=== PATIENT | male | born 1985 | race Caucasian/White ===

== ENCOUNTER 2016-08-13 14:21 | Emergency (ER) | payer BC ==
[~2016-08-13] VITALS: Ht 177.8 cm; Wt 103.1 kg
[2016-08-13 14:26] VITALS: Ht 177.8 cm; Wt 103.1 kg
[2016-08-13] MEDS ORDERED: ONDANSETRON INJ 2 MG/ML 2 ML VIAL IV STA (14:43)
[2016-08-13] MEDS ORDERED: KETOROLAC TROMETHAMINE 30 MG/ML VIAL IV STA (14:43)
[2016-08-13] MEDS ORDERED: MoRPHine SULFATE 10 MG/ML CARP/VIAL IV STA (14:43)
[2016-08-13] MEDS ORDERED: SODIUM CHLORIDE 0.9% 1000ML 1,000 ML IV STA (14:43)
[2016-08-13] MEDS ORDERED: MoRPHine SULFATE 4 MG/ML 1 ML CARP\\VIAL ONE (14:59)
[2016-08-13] MEDS ORDERED: MoRPHine SULFATE 2 MG/ML CARP ONE (14:59)
[2016-08-13] MEDS ORDERED: PRED10TA PO (15:06)
[2016-08-13 15:24] LABS: BASO % 0.1 %; BASO ABS # 0.02 K/uL (0-0.2); COMPLETE YES; HEMATOCRIT 46.4 % (42-52); IG% 0.4 %; LYMPH % 10.1 %; LYMPH ABS # 1.98 K/uL (1.2-3.4); MEAN CELL VOLUME 86.6 fL (80-100); MEAN CORPUSCULAR HEMOGLOBIN 29.7 pg (25-34); MEAN CORPUSCULAR HGB CONC 34.3 g/dl (32-36); NEUT % 79.4 %; PLATELET COUNT 264 K/uL (130-400); RED BLOOD COUNT 5.36 M/uL (4.7-6.1); WHITE BLOOD COUNT 19.66 K/uL (4.8-10.8)
--- NOTE | 2016-08-13 15:34 | DIAGNOSTIC IMAGING REPORT ---
ABDOMEN AND PELVIS CT WITHOUT CONTRAST CT DOSE: 1034.45 mGy.cm HISTORY: Pain left lower abdominal pain TECHNIQUE: Multiaxial CT images of the abdomen and pelvis were performed without the use of intravenous and oral contrast according to the standard department stone protocol. COMPARISON STUDY: None. FINDINGS: Lung bases are clear. Liver spleen and pancreas are considered unremarkable. The kidneys negative for calcification or hydronephrosis. There are several small reactive retroperitoneal nodes measuring up to 6 mm. There are findings of acute proximal to mid sigmoid diverticulitis. There is moderate wall thickening with a rather significant amount pericolonic infiltrative change. This extends to the left lateral pelvic sidewall region. There is no evidence for abscess collection or obstruction. There is trace amount of reactive edematous change of the small bowel loops. There is no small bowel obstructive factor. IMPRESSION: Acute proximal to mid sigmoid diverticulitis. 2. Pericolonic infiltrative change with inflammatory pericolonic changes extending to the left lateral pelvic sidewall. 3. No evidence for abscess collection or obstruction. Electronically signed by: Chuy Wasserman M.D. 08/13/2016 3:32 PM Dictated Date/Time: 08/13/2016 3:29 PM
[2016-08-13] MEDS ORDERED: METRONIDAZOLE 250 MG TAB PO STA (15:39)
[2016-08-13] MEDS ORDERED: CIPROFLOXACIN 500 MG TAB PO STA (15:39)
[2016-08-13 15:41] LABS: BUN/CREATININE RATIO 13.4 (10-20); CALCIUM 9.3 mg/dl (8.5-10.1); CREATININE 0.99 mg/dl (0.60-1.40); POTASSIUM 3.9 mmol/L (3.5-5.1)
[2016-08-13] MEDS ORDERED: CIPR1TAB10 PO (15:59)
[2016-08-13] MEDS ORDERED: METR-163 PO (15:59)
[2016-08-13] MEDS ORDERED: HYDR-5688 PO (16:05)
--- NOTE | 2016-08-13 16:18 | EMERGENCY ROOM VISIT NOTE ---
History First contact with patient: 14:29 Chief Complaint: ABDOMINAL PAIN Stated Complaint: STOMACH PAIN, V, DIFFICULTY GOING TO THE BATHROOM Nursing Triage Summary: PT reports LLQ pain that began yesterday. Pt reports pain radiates into mid lower abdomen. Pt also reports urinary symptoms that began yesterday. Difficulty moving bowels, took laxative yesterday. BM overnight. Pt reports nausea/vomitting. History of Present Illness The patient is a 31 year old male who presents to the Emergency Room with complaints of left lower abdominal pain and difficulty urinating. The patient states that his symptoms started yesterday. He states when he tries to urinate he feels pressure in the left lower quadrant. He has increased pain with movement and trying to sleep. He also has nausea and vomiting. Patient has not been able to eat or drink very much. He denies any back pain. The patient denies any dysuria, hematuria, urgency or frequency. The patient denies any penile discharge. The patient denies any diarrhea. He had a small bowel movement last night after he took a laxative. He states he did not have a bowel movement for 2 days prior. The patient denies any current hematochezia or melena. The patient denies any personal history of kidney stones or diverticulitis. There is a family history of kidney stones. Review of Systems 10 system review was performed and was negative unless stated otherwise history of present illness. Social History Smoking Status: Never Smoker Alcohol Use: none Housing Status: lives with family Occupation Status: employed Current/Historical Medications Scheduled Ciprofloxacin Hcl (Cipro), 500 MG PO BID Metronidazole (Flagyl), 500 MG PO BID Prednisone (Prednisone), 0 PO UD Scheduled PRN Hydrocodone/Acetaminophen 5MG/325MG ([place] 5MG/325MG), 1-2 TAB PO Q6 PRN for Pain Allergies Coded Allergies: Acetaminophen (Unverified Allergy, Unknown, NAUSEA, 08/13/16) Hydrocodone (Unverified Allergy, Unknown, NAUSEA, 08/13/16) Physical Exam Vital Signs Date Time Temp Pulse Resp B/P (MAP) Pulse Ox O2 Delivery O2 Flow Rate FiO2 08/13/16 15:57 83 18 116/75 95 Room Air 08/13/16 14:26 36.8 99 18 123/73 99 Room Air Physical Exam GENERAL: 31-year-old white male appears uncomfortable secondary to abdominal pain. MENTAL Status: Alert and oriented 3. EYES: No icterus noted MOUTH: Mucosa is moist NECK: Supple, no lymphadenopathy noted. No carotid bruits noted. LUNGS: Clear auscultation without wheezes rales or rhonchi. CARDIAC: Regular rate and rhythm without murmur. Pulses is full and equal throughout. BACK: No CVA tenderness noted. ABDOMEN: Positive bowel sounds all 4 quadrants. Soft, tenderness palpation in the left lower quadrant otherwise nontender to palpation without organomegaly or masses. Positive rebound tenderness. EXTREMITIES: No cyanosis or edema noted. Medical Decision & Procedures ER Provider Diagnostic Interpretation: ABDOMEN AND PELVIS CT WITHOUT CONTRAST CT DOSE: 1034.45 mGy.cm HISTORY: Pain left lower abdominal pain TECHNIQUE: Multiaxial CT images of the abdomen and pelvis were performed without the use of intravenous and oral contrast according to the standard department stone protocol. COMPARISON STUDY: None. FINDINGS: Lung bases are clear. Liver spleen and pancreas are considered unremarkable. The kidneys negative for calcification or hydronephrosis. There are several small reactive retroperitoneal nodes measuring up to 6 mm. There are findings of acute proximal to mid sigmoid diverticulitis. There is moderate wall thickening with a rather significant amount pericolonic infiltrative change. This extends to the left lateral pelvic sidewall region. There is no evidence for abscess collection or obstruction. There is trace amount of reactive edematous change of the small bowel loops. There is no small bowel obstructive factor. IMPRESSION: Acute proximal to mid sigmoid diverticulitis. 2. Pericolonic infiltrative change with inflammatory pericolonic changes extending to the left lateral pelvic sidewall. 3. No evidence for abscess collection or obstruction. Electronically signed by: Chuy Wasserman M.D. 08/13/2016 3:32 PM Dictated Date/Time: 08/13/2016 3:29 PM Laboratory Results 08/13/16 14:54 Red Blood Count 5.36, Mean Corpuscular Volume 86.6, Mean Corpuscular Hemoglobin 29.7, Mean Corpuscular Hemoglobin Concent 34.3, Mean Platelet Volume 11.0, Neutrophils (%) (Auto) 79.4, Lymphocytes (%) (Auto) 10.1, Monocytes (%) (Auto) 10.0, Eosinophils (%) (Auto) 0.0, Basophils (%) (Auto) 0.1, Neutrophils # (Auto ) 15.62, Lymphocytes # (Auto) 1.98, Monocytes # (Auto) 1.96, Eosinophils # (Auto ) 0.00, Basophils # (Auto) 0.02 08/13/16 14:54 Test 08/13/16 14:54 White Blood Count 19.66 K/uL (4.8-10.8) Red Blood Count 5.36 M/uL (4.7-6.1) Hemoglobin 15.9 g/dL (14.0-18.0) Hematocrit 46.4 % (42-52) Mean Corpuscular Volume 86.6 fL (80-100) Mean Corpuscular Hemoglobin 29.7 pg (25-34) Mean Corpuscular Hemoglobin Concent 34.3 g/dl (32-36) Platelet Count 264 K/uL (130-400) Mean Platelet Volume 11.0 fL (7.4-10.4) Neutrophils (%) (Auto) 79.4 % Lymphocytes (%) (Auto) 10.1 % Monocytes (%) (Auto) 10.0 % Eosinophils (%) (Auto) 0.0 % Basophils (%) (Auto) 0.1 % Neutrophils # (Auto) 15.62 K/uL (1.4-6.5) Lymphocytes # (Auto) 1.98 K/uL (1.2-3.4) Monocytes # (Auto) 1.96 K/uL (0.11-0.59) Eosinophils # (Auto) 0.00 K/uL (0-0.5) Basophils # (Auto) 0.02 K/uL (0-0.2) RDW Standard Deviation 41.9 fL (36.4-46.3) RDW Coefficient of Variation 13.2 % (11.5-14.5) Immature Granulocyte % (Auto) 0.4 % Immature Granulocyte # (Auto) 0.08 K/uL (0.00-0.02) Anion Gap 8.0 mmol/L (3-11) Est Creatinine Clear Calc Drug Dose 127.7 ml/min Estimated GFR () 115.5 Estimated GFR (Non- 99.7 BUN/Creatinine Ratio 13.4 (10-20) Calcium Level 9.3 mg/dl (8.5-10.1) Total Bilirubin 1.0 mg/dl (0.2-1) Direct Bilirubin 0.2 mg/dl (0-0.2) Aspartate Amino Transf (AST/SGOT) 15 U/L (15-37) Alanine Aminotransferase (ALT/SGPT) 34 U/L (12-78) Alkaline Phosphatase 87 U/L (45-117) Total Protein 7.9 gm/dl (6.4-8.2) Albumin 3.8 gm/dl (3.4-5.0) Lipase 111 U/L (73-393) Medications Administered Medications (Trade) Dose Ordered Sig/[place] Route Start Time Stop Time Status Last Admin Dose Admin Sodium Chloride 1,000 ml @ 999 mls/hr Q1H1M STAT IV 08/13/16 14:43 08/13/16 15:43 DC 08/13/16 15:03 999 MLS/HR Ondansetron HCl (Zofran Inj) 4 mg NOW STAT IV 08/13/16 14:43 08/13/16 14:46 DC 08/13/16 15:03 4 MG Ketorolac Tromethamine (Toradol Inj) 30 mg NOW STAT IV 08/13/16 14:43 08/13/16 14:46 DC 08/13/16 15:05 30 MG Morphine Sulfate (MoRPHine SULFATE INJ) 2 mg STK-MED ONCE .ROUTE 08/13/16 14:59 08/13/16 15:00 DC 08/13/16 15:06 2 MG Morphine Sulfate (MoRPHine SULFATE INJ) 4 mg STK-MED ONCE .ROUTE 08/13/16 14:59 08/13/16 15:00 DC 08/13/16 15:06 4 MG Ciprofloxacin (Cipro Tab) 500 mg NOW STAT PO 08/13/16 15:39 08/13/16 15:41 DC 08/13/16 15:48 500 MG Metronidazole (Flagyl Tab) 500 mg NOW STAT PO 08/13/16 15:39 08/13/16 15:41 DC 08/13/16 15:48 500 MG ED Course IV access was obtained. The patient was given 1 L normal saline wide-open. The patient was given Toradol 30 mg IV, morphine 6 mg IV and Zofran 4 mg IV push. CBC and differential, renal profile, LFTs and lipase levels were ordered. Labs are reviewed. The patient's white count was 19,000. Remainder labs are unremarkable. Urinalysis was ordered. CT stone study was ordered and interpreted by the radiologist as above with evidence of sigmoid diverticulitis. The patient was given Cipro 500 mg by mouth and Flagyl 500 mg by mouth. The patient's case was discussed with Dr. Meadows who agreed with treatment plan. The patient states that he is on a waiting list for . Therefore I spoke with the high risk case manager to see if she can get him an appointment with another [facility] physician for follow-up on Wednesday. She was able to get him an appointment with Dr. Barr at 3:00 on Wednesday. I asked the patient about his allergy to acetaminophen and hydrocodone and he stated he just got an upset stomach when he had his wisdom teeth removed. Therefore the patient will be prescribed [place] for pain. The patient was reevaluated was feeling better. The patient was discharged home in stable condition. Medical Decision Differential diagnosis include UTI, pyelonephritis, ureteral calculi, diverticulitis, bowel obstruction, constipation Impression Primary Impression: Diverticulitis large intestine w/o perforation or abscess w/o bleeding Departure Information Dispostion Home / Self-Care Condition GOOD Prescriptions Hydrocodone/Acetaminophen 5MG/325MG ([place] 5MG/325MG) Tab 1-2 TAB PO Q6 Y for Pain for 30 Days, #20 TAB PRN PAIN Prov: Em Wasserman PA-C 08/13/16 Metronidazole (Flagyl) 500 Mg Tab 500 MG PO BID for 10 Days, #20 TAB Prov: Em Wasserman PA-C 08/13/16 Ciprofloxacin Hcl (CIPRO) 500 Mg Tab 500 MG PO BID for 10 Days, #20 TAB Prov: Em Wasserman PA-C 08/13/16 Referrals No Doctor, Assigned (PCP) Forms Call Back Authorization, HOME CARE DOCUMENTATION FORM, IMPORTANT VISIT INFORMATION Patient Instructions ED Diet Clear Liquid, ED Diverticulitis, My [facility] Additional Instructions Follow clear liquid diet for 2 days. Then slowly advance diet as tolerated. Take Flagyl and Cipro as prescribed. Take [place] as needed for pain. Do not drive while taking the [place]. Follow-up with Dr. Barr at 3 PM on Wednesday. If you have any worsening of symptoms in the interim, return to ER.
[2016-08-13 16:24] LABS: URINE APPEARANCE TURBID (CLEAR); URINE BILIRUBIN NEG (NEG); URINE COLOR ORANGE; URINE NITRITE NEG (NEG); URINE PH 5.5 (4.5-7.5); UROBILINOGEN NEG (NEG); ZZUR CULT IF INDIC CLEAN CATCH NO
[2016-08-13 16:33] VITALS: BP 116/72; PULSE 81; TEMP 36.8; O2SAT 97
[2016-08-13 17:02] LABS: MANUAL MICROSCOPIC REQUIRED? NO; REVIEW REQ? NO
[2016-08-14] MEDS ORDERED: ACET-1256 PO (16:58)
== END 2016-08-13 16:34 | disposition home or self-care (01) ==
LOC: C.EDB 14:24 → C.EDC 16:34
DX: K57.32 Diverticulitis of large intestine without perforation or abscess without bleeding (principal); Z84.1 Family history of disorders of kidney and ureter

== ENCOUNTER 2016-08-14 16:23 | Inpatient (IN) | payer BC ==
[~2016-08-14] VITALS: Ht 177.8 cm; Wt 102.7 kg
[~2016-08-14 16:23] MED LIST: CIPR1TAB10 PO; HYDR-5688 PO; METR-163 PO; PRED10TA PO
[2016-08-14] MEDS ORDERED: SODIUM CHLORIDE 0.9% 1000ML 1,000 ML IV STA ×2 (16:35)
[2016-08-14] MEDS ORDERED: PIPERACILLIN/TAZOBACTAM 4.5 GM/100ML D5W IV STA (16:51)
[2016-08-14] MEDS ORDERED: MoRPHine SULFATE 10 MG/ML CARP/VIAL IV STA (16:51)
[2016-08-14] MEDS ORDERED: ONDANSETRON INJ 2 MG/ML 2 ML VIAL IV STA ×2 (16:51→18:25)
[2016-08-14] MEDS ORDERED: ACET-1256 PO (16:58)
[2016-08-14] MEDS ORDERED: MoRPHine SULFATE 2 MG/ML CARP ONE (17:10)
[2016-08-14] MEDS: MoRPHine SULFATE 4 MG/ML 1 ML CARP\\VIAL IV PRN ×3 (17:13→19:49)
[2016-08-14 17:35] LABS: BASO % 0.2 %; BASO ABS # 0.03 K/uL (0-0.2); COMPLETE YES; EOS % 0.3 %; HEMATOCRIT 42.6 % (42-52); IG% 0.4 %; LYMPH % 7.6 %; LYMPH ABS # 1.48 K/uL (1.2-3.4); MEAN CELL VOLUME 86.1 fL (80-100); MEAN CORPUSCULAR HEMOGLOBIN 29.7 pg (25-34); MEAN CORPUSCULAR HGB CONC 34.5 g/dl (32-36); MEAN PLATELET VOLUME 10.5 fL (7.4-10.4); MONO % 9.5 %; PLATELET COUNT 244 K/uL (130-400); RED BLOOD COUNT 4.95 M/uL (4.7-6.1)
[2016-08-14 17:52] LABS: BUN/CREATININE RATIO 10.7 (10-20); CALCIUM 8.8 mg/dl (8.5-10.1); POTASSIUM 3.8 mmol/L (3.5-5.1)
[2016-08-14 17:55] LABS: ALB/GLOB RATIO 0.8 (0.9-2)
[2016-08-14] MEDS ORDERED: OPTIRAY 320 IV PRN (19:00)
--- NOTE | 2016-08-14 19:00 | DIAGNOSTIC IMAGING REPORT ---
CT SCAN OF THE ABDOMEN AND PELVIS WITH IV CONTRAST CLINICAL HISTORY: Increasing lower abdominal pain. Known diverticulitis. COMPARISON STUDY: Abdominal CT dated 08/13/2016. TECHNIQUE: Following the IV administration of 116 cc of Optiray 320, CT scan of the abdomen and pelvis is performed from the lung bases to the proximal femora. Images are reviewed in the axial, sagittal, and coronal planes. IV contrast was administered without complication. Automated dose control exposure was utilized. CT DOSE: 1194.28 mGy.cm FINDINGS: Lung bases: The heart is normal in size and without pericardial effusion. There is bibasilar dependent atelectasis. The lung bases are otherwise clear. There is a tiny hiatal hernia. Liver: The contrast-enhanced liver is enlarged, measuring 19 cm in length. The liver demonstrates diffusely diminished attenuation consistent with hepatic steatosis. There is no intrahepatic biliary ductal dilatation. The hepatic veins and portal veins are patent. Gallbladder: Unremarkable. Spleen: Normal in size and attenuation. A subcentimeter hypodensity in the inferior spleen seen on image #165 is statistically of doubtful significance. Pancreas: Unremarkable. Adrenal glands: Unremarkable. Kidneys: The contrast enhanced kidneys are normal in size. There is mild left hydroureteronephrosis. There is no right-sided hydronephrosis. The kidneys enhance symmetrically. Abdominal vasculature: The abdominal aorta is normal in course and caliber. Bowel and peritoneum: The small bowel and colon are normal in course and caliber. There is mild sigmoid diverticulosis. There is significant wall thickening and edema seen in the proximal to mid portions of the sigmoid colon with stranding pericolonic inflammation and trace fluid. The appearance is consistent with acute diverticulitis. A small gas and fluid containing collection is identified along the sigmoid colon on axial image #374. This likely represents a tiny abscess. There is a tiny focus of intracranial free air seen in left pelvis on image #357. Fluid is seen in the left paracolic gutters, left greater than right. The appendix is well-visualized and normal. There is a small fat-containing umbilical hernia. Lymphadenopathy: Mildly enlarged retroperitoneal lymph nodes measure up to 8 mm in short axis. These are likely on a reactive basis. Pelvic viscera: The bladder, prostate, and seminal vesicles are normal as visualized. Skeletal structures: No lytic or blastic lesions are seen. IMPRESSION: 1. Findings are consistent with severe acute sigmoid diverticulitis. 2. There are tiny foci of intraperitoneal free air in the pelvis indicating perforation. A 1.8 cm abscess is suspected adjacent the sigmoid colon. 3. Fluid is noted within the paracolic gutter bilaterally, likely on a reactive basis. 4. There is mild left hydroureteronephrosis. This is likely related to the inflammatory process in the left pelvis. 5. Hepatomegaly and hepatic steatosis. 6. Mildly enlarged retroperitoneal lymph nodes are on the reactive basis. Electronically signed by: Trevor Jane M.D. 08/14/2016 6:58 PM Dictated Date/Time: 08/14/2016 6:49 PM
--- NOTE | 2016-08-14 19:31 | EMERGENCY ROOM VISIT NOTE ---
History First contact with patient: 16:35 Chief Complaint: ABDOMINAL PAIN Stated Complaint: ABD PAIN Nursing Triage Summary: continues to have abominal pain and nasuea with some vomiting. feeling no better History of Present Illness Patient is a 31-year-old white male who was diagnosed with diverticulitis yesterday who returns to the emergency department for ongoing left lower quadrant abdominal pain 2 days. He states his symptoms started 2 days ago. He noted pain and fullness in the left lower quadrant. He was seen and evaluated here yesterday and was found to have diverticulitis. He is discharged to home on Cipro and Flagyl. Patient states that he has had a total of 2 oral doses of the antibiotics since leaving the facility. He has noted increased pain, primarily in the left lower quadrant, but now spreading into the right lower quadrant as well. He reports increased nausea, and started running a fever this afternoon. He reports his temperature was 101F prior to coming to the emergency department. He did take acetaminophen for his fever. He did not use the hydrocodone because it has made him nauseous in the past. He has tried sipping on fluids, including Gatorade and has had some Jell-O and broth. He presently rates his pain a 9/10. Review of Systems Review of systems as per HPI. All other systems reviewed were negative. 10 systems reviewed. Past Medical/Surgical History Electronic medical records are reviewed and summarized as above/below. See Problem List. Social History Smoking Status: Never Smoker Alcohol Use: none Housing Status: lives with family Occupation Status: employed Current/Historical Medications Scheduled Acetaminophen (Tylenol), 500 MG PO UD Ciprofloxacin Hcl (Cipro), 500 MG PO BID Metronidazole (Flagyl), 500 MG PO BID Allergies Coded Allergies: Hydrocodone (Verified Adverse Reaction, Unknown, NAUSEA, 08/14/16) Physical Exam Vital Signs Date Time Temp Pulse Resp B/P (MAP) Pulse Ox O2 Delivery O2 Flow Rate FiO2 08/14/16 22:15 38.5 94 18 129/76 95 Room Air 08/14/16 20:40 38.1 90 20 120/83 94 Room Air 08/14/16 19:45 38.1 94 20 120/83 94 Room Air 08/14/16 18:35 93 17 123/80 97 Room Air 08/14/16 16:28 37.1 107 18 132/89 97 Room Air Physical Exam CONSTITUTIONAL: Patient is an uncomfortable appearing 31-year-old white male who is awake and alert and in moderate distress due to his stated complaint. EYES: Pupils equal, round, reactive to light and accommodation. EOMs intact without nystagmus. Sclera are anicteric. ENT: Tympanic membranes intact, with normal landmarks. External canals are clear. Oral and nasopharynx are clear. Mucous membranes are moist, no lesions , tongue and gums appear normal. NECK: No bruits auscultated. Supple without lymphadenopathy. No thyromegaly. No meningeal signs. Full active range of motion without discomfort. CARDIOVASCULAR: Regular rate and rhythm, with normal S1 and S2, no murmur or gallop or rub is heard. No carotid bruits auscultated. No JVD. Peripheral pulses easily palpable. RESPIRATORY: Breath sounds equal and clear to auscultation without wheezes, rales, or rhonchi heard. Full and equal chest expansion without accessory muscle use or retractions. ABDOMEN: Bowel sounds are present. Abdomen is soft, slightly distended tender to percussion throughout, and tender to palpation in the left and the right lower quadrants with voluntary guarding. INTEGUMENTARY: No lesions or rash, normal skin turgor. LYMPH: No lymphadenopathy. Medical Decision & Procedures ER Provider Diagnostic Interpretation: CT SCAN OF THE ABDOMEN AND PELVIS WITH IV CONTRAST CLINICAL HISTORY: Increasing lower abdominal pain. Known diverticulitis. COMPARISON STUDY: Abdominal CT dated 08/13/2016. TECHNIQUE: Following the IV administration of 116 cc of Optiray 320, CT scan of the abdomen and pelvis is performed from the lung bases to the proximal femora. Images are reviewed in the axial, sagittal, and coronal planes. IV contrast was administered without complication. Automated dose control exposure was utilized. CT DOSE: 1194.28 mGy.cm FINDINGS: Lung bases: The heart is normal in size and without pericardial effusion. There is bibasilar dependent atelectasis. The lung bases are otherwise clear. There is a tiny hiatal hernia. Liver: The contrast-enhanced liver is enlarged, measuring 19 cm in length. The liver demonstrates diffusely diminished attenuation consistent with hepatic steatosis. There is no intrahepatic biliary ductal dilatation. The hepatic veins and portal veins are patent. Gallbladder: Unremarkable. Spleen: Normal in size and attenuation. A subcentimeter hypodensity in the inferior spleen seen on image #165 is statistically of doubtful significance. Pancreas: Unremarkable. Adrenal glands: Unremarkable. Kidneys: The contrast enhanced kidneys are normal in size. There is mild left hydroureteronephrosis. There is no right-sided hydronephrosis. The kidneys enhance symmetrically. Abdominal vasculature: The abdominal aorta is normal in course and caliber. Bowel and peritoneum: The small bowel and colon are normal in course and caliber. There is mild sigmoid diverticulosis. There is significant wall thickening and edema seen in the proximal to mid portions of the sigmoid colon with stranding pericolonic inflammation and trace fluid. The appearance is consistent with acute diverticulitis. A small gas and fluid containing collection is identified along the sigmoid colon on axial image #374. This likely represents a tiny abscess. There is a tiny focus of intracranial free air seen in left pelvis on image #357. Fluid is seen in the left paracolic gutters, left greater than right. The appendix is well-visualized and normal. There is a small fat-containing umbilical hernia. Lymphadenopathy: Mildly enlarged retroperitoneal lymph nodes measure up to 8 mm in short axis. These are likely on a reactive basis. Pelvic viscera: The bladder, prostate, and seminal vesicles are normal as visualized. Skeletal structures: No lytic or blastic lesions are seen. IMPRESSION: 1. Findings are consistent with severe acute sigmoid diverticulitis. 2. There are tiny foci of intraperitoneal free air in the pelvis indicating perforation. A 1.8 cm abscess is suspected adjacent the sigmoid colon. 3. Fluid is noted within the paracolic gutter bilaterally, likely on a reactive basis. 4. There is mild left hydroureteronephrosis. This is likely related to the inflammatory process in the left pelvis. 5. Hepatomegaly and hepatic steatosis. 6. Mildly enlarged retroperitoneal lymph nodes are on the reactive basis. Laboratory Results 08/14/16 17:05 Red Blood Count 4.95, Mean Corpuscular Volume 86.1, Mean Corpuscular Hemoglobin 29.7, Mean Corpuscular Hemoglobin Concent 34.5, Mean Platelet Volume 10.5, Neutrophils (%) (Auto) 82.0, Lymphocytes (%) (Auto) 7.6, Monocytes (%) (Auto) 9.5, Eosinophils (%) (Auto) 0.3, Basophils (%) (Auto) 0.2, Neutrophils # (Auto) 15.92, Lymphocytes # (Auto) 1.48, Monocytes # (Auto) 1.84, Eosinophils # (Auto) 0.06, Basophils # (Auto) 0.03 08/14/16 17:05 Test 08/14/16 17:05 08/14/16 17:22 White Blood Count 19.40 K/uL (4.8-10.8) Red Blood Count 4.95 M/uL (4.7-6.1) Hemoglobin 14.7 g/dL (14.0-18.0) Hematocrit 42.6 % (42-52) Mean Corpuscular Volume 86.1 fL (80-100) Mean Corpuscular Hemoglobin 29.7 pg (25-34) Mean Corpuscular Hemoglobin Concent 34.5 g/dl (32-36) Platelet Count 244 K/uL (130-400) Mean Platelet Volume 10.5 fL (7.4-10.4) Neutrophils (%) (Auto) 82.0 % Lymphocytes (%) (Auto) 7.6 % Monocytes (%) (Auto) 9.5 % Eosinophils (%) (Auto) 0.3 % Basophils (%) (Auto) 0.2 % Neutrophils # (Auto) 15.92 K/uL (1.4-6.5) Lymphocytes # (Auto) 1.48 K/uL (1.2-3.4) Monocytes # (Auto) 1.84 K/uL (0.11-0.59) Eosinophils # (Auto) 0.06 K/uL (0-0.5) Basophils # (Auto) 0.03 K/uL (0-0.2) RDW Standard Deviation 41.5 fL (36.4-46.3) RDW Coefficient of Variation 13.2 % (11.5-14.5) Immature Granulocyte % (Auto) 0.4 % Immature Granulocyte # (Auto) 0.07 K/uL (0.00-0.02) Anion Gap 8.0 mmol/L (3-11) Est Creatinine Clear Calc Drug Dose 126.1 ml/min Estimated GFR () 114.1 Estimated GFR (Non- 98.5 BUN/Creatinine Ratio 10.7 (10-20) Calcium Level 8.8 mg/dl (8.5-10.1) Total Bilirubin 1.1 mg/dl (0.2-1) Aspartate Amino Transf (AST/SGOT) 13 U/L (15-37) Alanine Aminotransferase (ALT/SGPT) 25 U/L (12-78) Alkaline Phosphatase 79 U/L (45-117) Total Protein 7.3 gm/dl (6.4-8.2) Albumin 3.2 gm/dl (3.4-5.0) Globulin 4.1 gm/dl (2.5-4.0) Albumin/Globulin Ratio 0.8 (0.9-2) Bedside Lactic Acid Venous 1.12 mmol/L (0.90-1.70) Medications Administered Medications (Trade) Dose Ordered Sig/Seymour Route Start Time Stop Time Status Last Admin Dose Admin Sodium Chloride 1,000 ml @ 999 mls/hr Q1H1M STAT IV 08/14/16 16:35 08/14/16 17:35 DC 08/14/16 17:14 999 MLS/HR Sodium Chloride 1,000 ml @ 250 mls/hr Q4H STAT IV 08/14/16 16:35 08/14/16 20:34 DC 08/14/16 17:15 250 MLS/HR Ondansetron HCl (Zofran Inj) 4 mg NOW STAT IV 08/14/16 16:51 08/14/16 17:00 DC 08/14/16 17:12 4 MG Morphine Sulfate (MoRPHine SULFATE INJ) 4 mg Q1H PRN IV 08/14/16 17:00 08/28/16 16:59 08/14/16 19:49 4 MG Piperacillin Sod/ Tazobactam Sod (Zosyn Iv) 4.5 gm NOW STAT IV 08/14/16 16:51 08/14/16 17:00 DC 08/14/16 17:14 4.5 GM Morphine Sulfate (MoRPHine SULFATE INJ) 2 mg STK-MED ONCE .ROUTE 08/14/16 17:10 08/14/16 17:11 DC 08/14/16 17:14 2 MG Ondansetron HCl (Zofran Inj) 4 mg NOW STAT IV 08/14/16 18:25 08/14/16 18:26 DC 08/14/16 18:34 4 MG ED Course The patient was seen and evaluated as above. His ED record from yesterday was reviewed. IV lock was initiated and he was hydrated with normal saline solution. He was medicated with Zofran 4 mg IV 2, morphine 6 mg IV 1 and then morphine 4 mg IV every hour as needed for pain. He was given Zosyn 4.5 g IV. CBC with differential, CMP, blood cultures 2, urinalysis and point-of- care lactic acid were drawn. Repeat CT scan of the abdomen and pelvis with IV contrast was ordered. Laboratory studies again demonstrated a marked leukocytosis of 19,400, with left shift and bandemia. H&H is normal. Electrolytes and renal functions are within normal limits. He has slight, nonspecific elevation of his total bilirubin, remainder of his LFTs are normal. [id number] lactic acid is normal. CT scan of the abdomen and pelvis with IV contrast notes severe acute sigmoid diverticulitis, with tiny foci of intraperitoneal free air indicating microperforation, and a 1.8 cm abscess adjacent to the sigmoid colon. Fluid, likely reactive is noted in the bilateral pericolic gutters. There is mild left hydroureteronephrosis, likely inflammatory. All laboratory and diagnostic imaging studies were reviewed with attending physician, and discussed with the patient at length. Temperature was rechecked by me at that time and was 38.1C orally. Patient was reviewed with [facility] Hospital[facility] Service and with Dr. Negrete of general surgery. He will be admitted for further care and management. Differential diagnoses entertained included UTI, pyelonephritis, renal colic, diverticulitis, abscess, perforation, bowel obstruction, sepsis, dehydration, mass or malignancy, among others. Medication reconciliation: I attest that I have personally reviewed the patient' s current medication list. Blood pressure screening : Patient was found to have normal blood pressure on screening and does not require follow-up. Medical Decision See emergency Department course Impression Primary Impression: Diverticulitis of intestine with perforation and abscess Departure Information Dispostion Admitted as an inpatient Referrals No Doctor, Assigned (PCP) Patient Instructions My [facility] Problem Qualifiers Primary Impression: Diverticulitis of intestine with perforation and abscess Diverticulitis site: large intestine Diverticulitis bleeding: without bleeding Qualified Codes: K57.20 - Diverticulitis of large intestine with perforation and abscess without bleeding
[2016-08-14] MEDS ORDERED: HYDROmorphone INJ 0.5 MG/0.5 ML SYR IV PRN (19:45)
--- NOTE | 2016-08-14 19:57 | History and Physical ---
History & Physical Date & Time of Service: Aug 14, 2016 at 19:42 Chief Complaint: Abd Pain Primary Care Physician: No Doctor, Assigned History of Present Illness Source: patient 31 y/o M no significant med history. Pt had visited the ER one day prior due to abdominal pain. He was diagnosed with diverticulitis and was prescribed Cipro/Flagyl and D/Cd. His abdominal pain has progressed and he developed fevers and returned to the ER. A CT abdomen revealed severe, acute, sigmoid diverticulitis with perforation and abscess. Past Medical/Surgical History Diverticulitis Social History Smoking Status: Never Smoker Occupational Status: employed Allergies Coded Allergies: Hydrocodone (Verified Adverse Reaction, Unknown, NAUSEA, 08/14/16) Home Medications Scheduled Acetaminophen (Tylenol), 500 MG PO UD Ciprofloxacin Hcl (Cipro), 500 MG PO BID Metronidazole (Flagyl), 500 MG PO BID Review of Systems Constitutional: + fever Eyes: No worsening of vision ENT: No hearing loss Respiratory: No cough, No sputum, No wheezing Cardiovascular: No chest pain, No orthopnea, No PND Abdomen: + pain, + nausea, No vomiting, No diarrhea Musculoskeletal: No joint pain Genitourinary - Male: No hematuria, No dysuria Neurologic: No memory loss, No paralysis, No weakness Psychiatric: No depression symptoms Endocrine: No fatigue Hematologic / Lymphatic: No abnormal bleeding/bruising Integumentary: No rash Allergic / Immunologic: No environmental allergies Physical Exam Vital Signs Date Time Temp Pulse Resp B/P (MAP) Pulse Ox O2 Delivery O2 Flow Rate FiO2 08/14/16 18:35 93 17 123/80 97 Room Air 08/14/16 16:28 37.1 107 18 132/89 97 Room Air General Appearance: WD/WN Head: normocephalic Eyes: normal inspection, EOMI ENT: normal ENT inspection, hearing grossly normal, TMs normal Neck: supple, no JVD Respiratory/Chest: chest non-tender, lungs clear, normal breath sounds Cardiovascular: regular rate, rhythm, no edema, no gallop Abdomen/GI: + tenderness (Gugarding is present - pain is elicited with mil) Back: normal inspection, no CVA tenderness Extremities/Musculoskelatal: normal inspection, no calf tenderness, normal capillary refill, no pedal edema, normal range of motion Neurologic/Psych: leadite heater II-XII nml as tested, no motor/sensory deficits, alert, oriented x 3 Skin: normal color, warm/dry, no rash Diagnostics Laboratory Results Results Past 24 Hours Test 08/14/16 17:05 08/14/16 17:22 Range/Units White Blood Count 19.40 4.8-10.8 K/uL Red Blood Count 4.95 4.7-6.1 M/uL Hemoglobin 14.7 14.0-18.0 g/dL Hematocrit 42.6 42-52 % Mean Corpuscular Volume 86.1 80-100 fL Mean Corpuscular Hemoglobin 29.7 25-34 pg Mean Corpuscular Hemoglobin Concent 34.5 32-36 g/dl Platelet Count 244 130-400 K/uL Mean Platelet Volume 10.5 7.4-10.4 fL Neutrophils (%) (Auto) 82.0 % Lymphocytes (%) (Auto) 7.6 % Monocytes (%) (Auto) 9.5 % Eosinophils (%) (Auto) 0.3 % Basophils (%) (Auto) 0.2 % Neutrophils # (Auto) 15.92 1.4-6.5 K/uL Lymphocytes # (Auto) 1.48 1.2-3.4 K/uL Monocytes # (Auto) 1.84 0.11-0.59 K/uL Eosinophils # (Auto) 0.06 0-0.5 K/uL Basophils # (Auto) 0.03 0-0.2 K/uL RDW Standard Deviation 41.5 36.4-46.3 fL RDW Coefficient of Variation 13.2 11.5-14.5 % Immature Granulocyte % (Auto) 0.4 % Immature Granulocyte # (Auto) 0.07 0.00-0.02 K/uL Sodium Level 139 136-145 mmol/L Potassium Level 3.8 3.5-5.1 mmol/L Chloride Level 105 98-107 mmol/L Carbon Dioxide Level 26 21-32 mmol/L Anion Gap 8.0 3-11 mmol/L Blood Urea Nitrogen 11 7-18 mg/dl Creatinine 1.00 0.60-1.40 mg/dl Est Creatinine Clear Calc Drug Dose 126.1 ml/min Estimated GFR () 114.1 Estimated GFR (Non- 98.5 BUN/Creatinine Ratio 10.7 10-20 Random Glucose 101 70-99 mg/dl Calcium Level 8.8 8.5-10.1 mg/dl Total Bilirubin 1.1 0.2-1 mg/dl Aspartate Amino Transf (AST/SGOT) 13 15-37 U/L Alanine Aminotransferase (ALT/SGPT) 25 12-78 U/L Alkaline Phosphatase 79 45-117 U/L Total Protein 7.3 6.4-8.2 gm/dl Albumin 3.2 3.4-5.0 gm/dl Globulin 4.1 2.5-4.0 gm/dl Albumin/Globulin Ratio 0.8 0.9-2 Bedside Lactic Acid Venous 1.12 0.90-1.70 mmol/L Microbiology Results 08/14/16 Blood Culture, Received Pending 08/14/16 Blood Culture, Received Pending Diagnostic Radiology CT abdomen 1. Findings are consistent with severe acute sigmoid diverticulitis. 2. There are tiny foci of intraperitoneal free air in the pelvis indicating perforation. A 1.8 cm abscess is suspected adjacent the sigmoid colon. 3. Fluid is noted within the paracolic gutter bilaterally, likely on a reactive basis. 4. There is mild left hydroureteronephrosis. This is likely related to the inflammatory process in the left pelvis. 5. Hepatomegaly and hepatic steatosis. 6. Mildly enlarged retroperitoneal lymph nodes are on the reactive basis. Impression Assessment and Plan 31 y/o M no significant med history. Pt had visited the ER one day prior due to abdominal pain. He was diagnosed with diverticulitis and was prescribed Cipro/Flagyl and D/Cd. His abdominal pain has progressed and he developed fevers and returned to the ER. A CT abdomen revealed severe, acute, sigmoid diverticulitis with perforation and abscess. Diverticulitis, perforation, abscess: Pt placed on Zosyn, Analgesics, antiemetics and IVF. Kept NPO - Surgery consulted / aware Based on the CT there is a degree of L ureteral compression and related hydronephrosis owing to inflammation from the diverticulitis. This bears monitoring and an ultrasound should likely be obtained to insure improvement in 1-2 days. Full code - SCDs pending surgery eval Total time for this admit including review of labs, meds, imaging - discussion with pt and ER attending - 35 min
[2016-08-14] MEDS ORDERED: PIPERACILL/TAZOBAC CONSULT ACTIVE PRN (20:15)
[2016-08-14 20:40] VITALS: BP 120/83; PULSE 90; TEMP 38.1; O2SAT 94; Ht 177.8 cm; Wt 102.7 kg
[2016-08-14 23:11] VITALS: BP 136/77; PULSE 96; TEMP 37.8; O2SAT 95
[2016-08-14] MEDS: ONDANSETRON INJ 2 MG/ML 2 ML VIAL IV PRN (23:30)
[2016-08-14 23:35] LABS: URINE APPEARANCE CLEAR (CLEAR); URINE BILIRUBIN NEG (NEG); URINE COLOR YELLOW; URINE NITRITE NEG (NEG); URINE SPECIFIC GRAVITY > 1.045 (1.000-1.030); UROBILINOGEN NEG (NEG)
[2016-08-14 23:41] LABS: MANUAL MICROSCOPIC REQUIRED? NO; REVIEW REQ? NO
[2016-08-15] MEDS: PIPERACILL/TAZOBAC IV 3.375 GM in DEXTROSE 5% 100ML 100 ML IV SCH ×4 (00:02→23:47)
[2016-08-15] MEDS: D5NSS + 20MEQ KCL 1,000 ML IV SCH ×3 (00:02→20:39)
[2016-08-15 00:21] VITALS: TEMP 38
[2016-08-15 01:29] VITALS: TEMP 37.5
--- NOTE | 2016-08-15 01:57 | Surgery Consultation ---
Consultation Date of Consultation: Aug 15, 2016. Attending Physician: Bob Carrillo M.D. 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 history of diverticular problems recently treated for poison jono with steroid 2 days ago complained of abd pain prior to that no previous episodes normal bm seen in Er yesterday with left lower quadrant abd pain dx with acute diverticulitis and send home on Cipro and Flagyl to f/u with primary MD but developed temperature and rescanned today with more advanced process from diverticular problem including microperforation and developing small abscess pt denies vomiting but nauseated, no bm last 48 hours or so Past Medical/Surgical History Medical Problems: (1) Diverticulitis large intestine w/o perforation or abscess w/o bleeding Status: Acute (2) Diverticulitis of intestine with perforation and abscess Status: Acute Family History sister diverticulitis Social History Smoking Status: Never Smoker Housing Status: lives with family Occupation Status: employed Allergies Coded Allergies: Hydrocodone (Verified Adverse Reaction, Unknown, NAUSEA, 08/14/16) Home Medications Scheduled Acetaminophen (Tylenol), 500 MG PO UD Ciprofloxacin Hcl (Cipro), 500 MG PO BID Metronidazole (Flagyl), 500 MG PO BID Current Inpatient Medications Current Inpatient Medications Medications (Trade) Dose Ordered Sig/Seymour Route Start Time Stop Time Status Last Admin Dose Admin Ioversol (Optiray 320) 100 ml UD PRN IV 08/14/16 19:00 08/18/16 18:59 Piperacillin Sod/ Tazobactam Sod 3.375 gm/Dextrose 115 ml @ 28.75 mls/ hr Q8H IV 08/15/16 00:00 08/25/16 00:00 08/15/16 00:02 28.75 MLS/HR Ondansetron HCl (Zofran Inj) 4 mg Q6H PRN IV 08/14/16 19:45 09/13/16 19:44 08/14/16 23:30 4 MG Hydromorphone HCl (Dilaudid Inj) 0.5 mg Q3H PRN IV 08/14/16 19:45 08/28/16 19:44 08/14/16 23:40 0.5 MG Potassium Chloride/Dextrose/ Sod Cl 1,000 ml @ 125 mls/hr Q8H IV 08/14/16 23:45 08/16/16 07:44 08/15/16 00:02 125 MLS/HR Piperacillin Sod/ Tazobactam Sod (Consult) 1 ea UD PRN N/A 08/14/16 20:15 09/13/16 20:14 Acetaminophen 100 ml @ 400 mls/hr Q8H PRN IV 08/14/16 22:30 09/13/16 22:29 Metronidazole 500 mg/Prmx 100 ml @ 100 mls/hr Q8H IV 08/15/16 01:45 08/25/16 01:44 UNV Sodium Chloride 1,000 ml @ 200 mls/hr Q5H IV 08/15/16 01:45 08/15/16 06:45 UNV Review of Systems Constitutional: + fever Eyes: No worsening of vision, No eye pain, No redness, No discharge, No diplopia, No problem reported ENT: No hearing loss, No unusual epistaxis, No nasal symptoms, No sore throat, No tinnitus, No dental problems, No trouble swallowing, No problem reported Respiratory: No cough, No sputum, No wheezing, No shortness of breath, No dyspnea on exertion, No dyspnea at rest, No hemoptysis, No problem reported Cardiovascular: No chest pain, No orthopnea, No PND, No edema, No claudication , No palpitations, No problem reported Abdomen: + pain, + nausea Musculoskeletal: No joint pain, No muscle pain, No swelling, No calf pain, No problem reported Genitourinary - Male: + dysuria Neurologic: No memory loss, No paralysis, No weakness, No numbness/tingling, No vertigo, No balance problems, No problem reported Psychiatric: No depression symptoms, No anhedonism, No anxiety, No insomnia, No substance abuse, No problem reported Endocrine: No fatigue, No excessive thirst, No excessive urination, No problem reported Hematologic / Lymphatic: No abnormal bleeding/bruising, No clotting problems, No swollen lymph nodes, No night sweats, No problem reported Integumentary: + problem reported (recently rx for poison jono) Physical Exam Date Time Temp Pulse Resp B/P (MAP) Pulse Ox O2 Delivery O2 Flow Rate FiO2 08/15/16 01:29 37.5 08/15/16 00:21 38.0 08/14/16 23:11 37.8 96 16 136/77 (96) 95 Room Air 08/14/16 22:15 38.5 94 18 129/76 95 Room Air 08/14/16 20:40 38.1 90 20 120/83 94 Room Air 08/14/16 19:45 38.1 94 20 120/83 94 Room Air 08/14/16 18:35 93 17 123/80 97 Room Air 08/14/16 16:28 37.1 107 18 132/89 97 Room Air General Appearance: + mild distress, + pertinent finding (tongue dry non scaling) Head: normocephalic Eyes: normal inspection ENT: normal ENT inspection Neck: supple, no adenopathy Respiratory/Chest: lungs clear Cardiovascular: no murmur, + tachycardia Abdomen/GI: + pertinent finding (slightly distended tenderness localized left lower quadrant and flank mostly no generalized rebound no masses no hernias) Extremities/Musculoskelatal: no calf tenderness, no pedal edema, normal range of motion Neurologic/Psych: alert Skin: normal color Lymphatic: no adenopathy Laboratory Results Last 24 Hours Test 08/14/16 17:05 08/14/16 17:22 08/14/16 23:00 White Blood Count 19.40 K/uL Red Blood Count 4.95 M/uL Hemoglobin 14.7 g/dL Hematocrit 42.6 % Mean Corpuscular Volume 86.1 fL Mean Corpuscular Hemoglobin 29.7 pg Mean Corpuscular Hemoglobin Concent 34.5 g/dl Platelet Count 244 K/uL Mean Platelet Volume 10.5 fL Neutrophils (%) (Auto) 82.0 % Lymphocytes (%) (Auto) 7.6 % Monocytes (%) (Auto) 9.5 % Eosinophils (%) (Auto) 0.3 % Basophils (%) (Auto) 0.2 % Neutrophils # (Auto) 15.92 K/uL Lymphocytes # (Auto) 1.48 K/uL Monocytes # (Auto) 1.84 K/uL Eosinophils # (Auto) 0.06 K/uL Basophils # (Auto) 0.03 K/uL RDW Standard Deviation 41.5 fL RDW Coefficient of Variation 13.2 % Immature Granulocyte % (Auto) 0.4 % Immature Granulocyte # (Auto) 0.07 K/uL Sodium Level 139 mmol/L Potassium Level 3.8 mmol/L Chloride Level 105 mmol/L Carbon Dioxide Level 26 mmol/L Anion Gap 8.0 mmol/L Blood Urea Nitrogen 11 mg/dl Creatinine 1.00 mg/dl Est Creatinine Clear Calc Drug Dose 126.1 ml/min Estimated GFR () 114.1 Estimated GFR (Non- 98.5 BUN/Creatinine Ratio 10.7 Random Glucose 101 mg/dl Calcium Level 8.8 mg/dl Total Bilirubin 1.1 mg/dl Aspartate Amino Transf (AST/SGOT) 13 U/L Alanine Aminotransferase (ALT/SGPT) 25 U/L Alkaline Phosphatase 79 U/L Total Protein 7.3 gm/dl Albumin 3.2 gm/dl Globulin 4.1 gm/dl Albumin/Globulin Ratio 0.8 Bedside Lactic Acid Venous 1.12 mmol/L Urine Color YELLOW Urine Appearance CLEAR Urine pH 5.0 Urine Specific Chadwick > 1.045 Urine Protein NEG Urine Glucose (UA) NEG Urine Ketones NEG Urine Occult Blood NEG Urine Nitrite NEG Urine Bilirubin NEG Urine Urobilinogen NEG Urine Leukocyte Esterase NEG Assessment & Plan discussed with pt and SO at bedside at this time will increase fluid add flagyl and see how process develops may need surgery for either lap washout vs resection and anders but at this time follow his clinical picture
[2016-08-15] MEDS ORDERED: SODIUM CHLORIDE 0.9% 1000ML 1,000 ML IV SCH ×2 (02:30→02:45)
[2016-08-15] MEDS: METRONIDAZOLE / NSS 500 MG in PREMIXED NSS 100 ML IV SCH ×3 (02:41→19:14)
[2016-08-15 04:05] VITALS: TEMP 37.7
[2016-08-15 07:09] LABS: MEAN CORPUSCULAR HGB CONC 33.6 g/dl (32-36); MEAN PLATELET VOLUME 10.9 fL (7.4-10.4); PLATELET COUNT 236 K/uL (130-400)
[2016-08-15 07:29] VITALS: BP 118/76; PULSE 82; TEMP 37.3; O2SAT 94
[2016-08-15 07:30] LABS: HEMATOCRIT 42.3 % (42-52); MEAN CELL VOLUME 87.9 fL (80-100); MEAN CORPUSCULAR HEMOGLOBIN 29.5 pg (25-34); RED BLOOD COUNT 4.81 M/uL (4.7-6.1); WHITE BLOOD COUNT 20.34 K/uL (4.8-10.8)
[2016-08-15 07:33] LABS: COMPLETE YES; LYMPH ABS # 1.26 K/uL (1.2-3.4); LYMPHOCYTE % 6.2 %; NEUTROPHILS % 89.4 %
--- NOTE | 2016-08-15 07:39 | Surgery Progress Note ---
Surgery Progress Note Date of Service Aug 15, 2016. Subjective overall feels bit better than few hours ago Objective Vital Signs: Date Time Temp Pulse Resp B/P (MAP) Pulse Ox O2 Delivery O2 Flow Rate FiO2 08/15/16 04:05 37.7 08/15/16 01:29 37.5 08/15/16 00:21 38.0 08/15/16 00:00 Room Air 08/14/16 23:11 37.8 96 16 136/77 (96) 95 Room Air 08/14/16 22:15 38.5 94 18 129/76 95 Room Air 08/14/16 20:40 38.1 90 20 120/83 94 Room Air 08/14/16 19:45 38.1 94 20 120/83 94 Room Air 08/14/16 18:35 93 17 123/80 97 Room Air 08/14/16 16:28 37.1 107 18 132/89 97 Room Air General Appearance: + pertinent finding (no distress better hydrated) Abdomen: + pertinent finding (less generalized guarding and dec tenderness left lower quadrant and flank) Laboratory Results: Results Past 24 Hours Test 08/14/16 17:05 08/14/16 17:22 08/14/16 23:00 08/15/16 06:16 Range/Units White Blood Count 19.40 20.34 4.8-10.8 K/uL Red Blood Count 4.95 4.81 4.7-6.1 M/uL Hemoglobin 14.7 14.2 14.0-18.0 g/dL Hematocrit 42.6 42.3 42-52 % Mean Corpuscular Volume 86.1 87.9 80-100 fL Mean Corpuscular Hemoglobin 29.7 29.5 25-34 pg Mean Corpuscular Hemoglobin Concent 34.5 33.6 32-36 g/dl Platelet Count 244 236 130-400 K/uL Mean Platelet Volume 10.5 10.9 7.4-10.4 fL Neutrophils (%) (Auto) 82.0 % Lymphocytes (%) (Auto) 7.6 % Monocytes (%) (Auto) 9.5 % Eosinophils (%) (Auto) 0.3 % Basophils (%) (Auto) 0.2 % Neutrophils # (Auto) 15.92 1.4-6.5 K/uL Lymphocytes # (Auto) 1.48 1.2-3.4 K/uL Monocytes # (Auto) 1.84 0.11-0.59 K/uL Eosinophils # (Auto) 0.06 0-0.5 K/uL Basophils # (Auto) 0.03 0-0.2 K/uL RDW Standard Deviation 41.5 43.5 36.4-46.3 fL RDW Coefficient of Variation 13.2 13.3 11.5-14.5 % Immature Granulocyte % (Auto) 0.4 % Immature Granulocyte # (Auto) 0.07 0.00-0.02 K/uL Sodium Level 139 136-145 mmol/L Potassium Level 3.8 3.5-5.1 mmol/L Chloride Level 105 98-107 mmol/L Carbon Dioxide Level 26 21-32 mmol/L Anion Gap 8.0 3-11 mmol/L Blood Urea Nitrogen 11 7-18 mg/dl Creatinine 1.00 0.60-1.40 mg/dl Est Creatinine Clear Calc Drug Dose 126.1 ml/min Estimated GFR () 114.1 Estimated GFR (Non- 98.5 BUN/Creatinine Ratio 10.7 10-20 Random Glucose 101 70-99 mg/dl Calcium Level 8.8 8.5-10.1 mg/dl Total Bilirubin 1.1 0.2-1 mg/dl Aspartate Amino Transf (AST/SGOT) 13 15-37 U/L Alanine Aminotransferase (ALT/SGPT) 25 12-78 U/L Alkaline Phosphatase 79 45-117 U/L Total Protein 7.3 6.4-8.2 gm/dl Albumin 3.2 3.4-5.0 gm/dl Globulin 4.1 2.5-4.0 gm/dl Albumin/Globulin Ratio 0.8 0.9-2 Bedside Lactic Acid Venous 1.12 0.90-1.70 mmol/L Urine Color YELLOW Urine Appearance CLEAR CLEAR Urine pH 5.0 4.5-7.5 Urine Specific [place] > 1.045 1.000-1.030 Urine Protein NEG NEG Urine Glucose (UA) NEG NEG Urine Ketones NEG NEG Urine Occult Blood NEG NEG Urine Nitrite NEG NEG Urine Bilirubin NEG NEG Urine Urobilinogen NEG NEG Urine Leukocyte Esterase NEG NEG Neutrophils % (Manual) 89.4 % Lymphocytes % (Manual) 6.2 % Monocytes % (Manual) 4.4 % Neutrophils # (Manual) 18.18 1.4-6.5 K/uL Total Absolute Neutrophils 18.18 1.4-6.5 K/uL Lymphocytes # (Manual) 1.26 1.2-3.4 K/uL Total Absolute Lymphocytes 1.26 1.2-3.4 K/uL Monocytes # (Manual) 0.89 0.11-0.59 K/uL Microbiology Results 08/14/16 Blood Culture, Received Pending 08/14/16 Blood Culture, Received Pending Assessment & Plan continue non operative mangement but keep close watch clinical picture lab noted vitals noted So at bedside
[2016-08-15] MEDS: ACETAMINOPHEN IV 100 ML IV PRN ×2 (08:02→15:47)
[2016-08-15] MEDS ORDERED: NURSING VERBAL MED ORDER ONE (08:30)
--- NOTE | 2016-08-15 11:59 | Hospitalist Progress Note ---
Hospitalist Progress Note Date of Service Aug 15, 2016. (Brayden Joseph,P.A.) Subjective Pt evaluation today including: conversation w/ patient, conversation w/ family , physical exam, chart review, lab review, review of studies, review of inpatient medication list Mr. Mcintosh is a very pleasant 31-year-old white male with a history of Diverticulosis Coli who presented to [facility] ER on 08/13/2016 complaining of LLQ pain. CT scan consistent with Acute Diverticulitis and started on Cipro and Flagyl. The following day (08/14/2016) patient developed worsening abdominal pain and fever. Returned to the ER and repeat CT scan revealed Severe Sigmoid Diverticulitis with Microperforation and Abscess formation. Patient admitted for further evaluation and IV antibiotic therapy, IVF's. At the present time, the patient is being seen in room 382 - 2 and continues to complain of left lower quadrant and mid abdominal pain. He states that his pain is gradually improving, but the pain medications are adequately controlling his discomfort. Patient is currently being followed by Dr. Negrete who recommends ongoing medical management of this acute illness, although surgical intervention may be required pending the patient's clinical course. Patient continues to have intermittent fevers and ongoing leukocytosis. He did have a very small bowel movement yesterday, but no bowel movement today. Patient is tolerating ice chips. No nausea or vomiting. (Brayden Joseph,P.A.) Medications Current Inpatient Medications Medications (Trade) Dose Ordered Sig/[place] Route Start Time Stop Time Status Last Admin Dose Admin Ioversol (Optiray 320) 100 ml UD PRN IV 08/14/16 19:00 08/18/16 18:59 Piperacillin Sod/ Tazobactam Sod 3.375 gm/Dextrose 115 ml @ 28.75 mls/ hr Q8H IV 08/15/16 00:00 08/25/16 00:00 08/15/16 08:02 28.75 MLS/HR Ondansetron HCl (Zofran Inj) 4 mg Q6H PRN IV 08/14/16 19:45 09/13/16 19:44 08/14/16 23:30 4 MG Hydromorphone HCl (Dilaudid Inj) 0.5 mg Q3H PRN IV 08/14/16 19:45 08/28/16 19:44 08/14/16 23:40 0.5 MG Potassium Chloride/Dextrose/ Sod Cl 1,000 ml @ 125 mls/hr Q8H IV 08/14/16 23:45 08/16/16 17:40 Future hold 08/15/16 00:02 125 MLS/HR Piperacillin Sod/ Tazobactam Sod (Consult) 1 ea UD PRN N/A 08/14/16 20:15 09/13/16 20:14 Acetaminophen 100 ml @ 400 mls/hr Q8H PRN IV 08/14/16 22:30 09/13/16 22:29 08/15/16 08:02 400 MLS/HR Metronidazole 500 mg/Prmx 100 ml @ 100 mls/hr Q8H IV 08/15/16 03:00 08/25/16 02:59 08/15/16 10:39 100 MLS/HR (Brayden Joseph.,P.A.) Objective Vital Signs Date Time Temp Pulse Resp B/P (MAP) Pulse Ox O2 Delivery O2 Flow Rate FiO2 08/15/16 07:55 Room Air 08/15/16 07:29 37.3 82 16 118/76 (90) 94 Room Air 08/15/16 04:05 37.7 08/15/16 01:29 37.5 08/15/16 00:21 38.0 08/15/16 00:00 Room Air 08/14/16 23:11 37.8 96 16 136/77 (96) 95 Room Air 08/14/16 22:15 38.5 94 18 129/76 95 Room Air 08/14/16 20:40 38.1 90 20 120/83 94 Room Air 08/14/16 19:45 38.1 94 20 120/83 94 Room Air 08/14/16 18:35 93 17 123/80 97 Room Air 08/14/16 16:28 37.1 107 18 132/89 97 Room Air (Brayden Joseph.,P.A.) Physical Exam Notes: General: Patient is ill appearing. HEENT: Head is atraumatic, normocephalic. EOMs intact. Sclerae anicteric. Facies symmetric. No perioral cyanosis. Mucous membranes moist. Neck: No thyromegaly, adenopathy, or JVD. Carotid upstrokes +2 bilaterally without bruits. Chest and Lungs: Clear to auscultation throughout all lung gonzalez, no wheezes, rales, or rhonchi. CVS: S1 and S2 are regular without murmurs, gallops, or rubs. PMI is nondisplaced. No lifts, heaves, or thrills. No abdominal aortic or renal bruits. Abdominal Exam: Bowel sounds are present but hypoactive. Abdomen mildly distended. Tenderness to palpation in the left lower quadrant with guarding present. Extremities: No clubbing, cyanosis, or edema. Intact posterior tibial and radial pulses bilaterally. Neurologic Exam: Patient is awake, alert, and interactive. Answers questions appropriately. Speech is clear. Normal movement in all 4 extremities. Gait pattern not assessed. (Brayden Joseph.,P.A.) Laboratory Results Last 24 Hours Test 08/14/16 17:05 08/14/16 17:22 08/14/16 23:00 08/15/16 06:16 White Blood Count 19.40 K/uL 20.34 K/uL Red Blood Count 4.95 M/uL 4.81 M/uL Hemoglobin 14.7 g/dL 14.2 g/dL Hematocrit 42.6 % 42.3 % Mean Corpuscular Volume 86.1 fL 87.9 fL Mean Corpuscular Hemoglobin 29.7 pg 29.5 pg Mean Corpuscular Hemoglobin Concent 34.5 g/dl 33.6 g/dl Platelet Count 244 K/uL 236 K/uL Mean Platelet Volume 10.5 fL 10.9 fL Neutrophils (%) (Auto) 82.0 % Lymphocytes (%) (Auto) 7.6 % Monocytes (%) (Auto) 9.5 % Eosinophils (%) (Auto) 0.3 % Basophils (%) (Auto) 0.2 % Neutrophils # (Auto) 15.92 K/uL Lymphocytes # (Auto) 1.48 K/uL Monocytes # (Auto) 1.84 K/uL Eosinophils # (Auto) 0.06 K/uL Basophils # (Auto) 0.03 K/uL RDW Standard Deviation 41.5 fL 43.5 fL RDW Coefficient of Variation 13.2 % 13.3 % Immature Granulocyte % (Auto) 0.4 % Immature Granulocyte # (Auto) 0.07 K/uL Sodium Level 139 mmol/L Potassium Level 3.8 mmol/L Chloride Level 105 mmol/L Carbon Dioxide Level 26 mmol/L Anion Gap 8.0 mmol/L Blood Urea Nitrogen 11 mg/dl Creatinine 1.00 mg/dl Est Creatinine Clear Calc Drug Dose 126.1 ml/min Estimated GFR () 114.1 Estimated GFR (Non- 98.5 BUN/Creatinine Ratio 10.7 Random Glucose 101 mg/dl Calcium Level 8.8 mg/dl Total Bilirubin 1.1 mg/dl Aspartate Amino Transf (AST/SGOT) 13 U/L Alanine Aminotransferase (ALT/SGPT) 25 U/L Alkaline Phosphatase 79 U/L Total Protein 7.3 gm/dl Albumin 3.2 gm/dl Globulin 4.1 gm/dl Albumin/Globulin Ratio 0.8 Bedside Lactic Acid Venous 1.12 mmol/L Urine Color YELLOW Urine Appearance CLEAR Urine pH 5.0 Urine Specific [place] > 1.045 Urine Protein NEG Urine Glucose (UA) NEG Urine Ketones NEG Urine Occult Blood NEG Urine Nitrite NEG Urine Bilirubin NEG Urine Urobilinogen NEG Urine Leukocyte Esterase NEG Neutrophils % (Manual) 89.4 % Lymphocytes % (Manual) 6.2 % Monocytes % (Manual) 4.4 % Neutrophils # (Manual) 18.18 K/uL Total Absolute Neutrophils 18.18 K/uL Lymphocytes # (Manual) 1.26 K/uL Total Absolute Lymphocytes 1.26 K/uL Monocytes # (Manual) 0.89 K/uL (Brayden Joseph,P.A.) Assessment and Plan 1. Acute Sigmoid Diverticulitis with Microperforation and Abscess Formation: -- Continue IV Fluids, ice chips. -- Continue Dilaudid for pain control. -- Continue IV Zosyn. -- Continue IV Flagyl. -- Being followed by Dr. Negrete. -- Surgery likely but timing will be determined based on patient's clinical course. -- Considering laparoscopic washout vs. resection and Cari procedure. -- If abscess gets large enough -- could consider transfer to facility with Interventional Radiology to place percutaneous drain while waiting at least 8 weeks for sigmoid resection ultimately (as this would avoid a temporary colostomy. -- Continue monitoring laboratories including blood counts, renal function, electrolytes. Continued [facility] stay due to: fever, inadequate po fluid intake, multiple IV medications needed Discharge planning: uncertain (Brayden Joseph,P.A.) Reviewed: Pt Seen/Exam by Me (Chrissy Peters, ) History Pt with ongoing abd pain, but improved from prior. On admission, pain was most intense in LLQ, but did radiate across the abdomen laterally. Now when at rest pain is only LLQ. Still with nausea, but improved. No emesis. Pt denies fever , SOB, chest pain, c/d, LE pain or swelling. (Chrissy Peters, ) General Appearance: mild distress (no distress at rest, but did have appearance of pain when moving to lie flat for my exam), obese Eye Exam: bilateral eye normal inspection, bilateral eye EOMI Ears, Nose, Throat: hearing grossly normal Neck: supple Respiratory: normal breath sounds, no respiratory distress Cardiovascular: normal peripheral pulses, regular rate, rhythm Gastrointestinal: soft, distended, tenderness (diffuse, worst in LLQ) Extremities: non-tender, no pedal edema Neurologic/Psychiatric: alert, normal mood/affect, oriented x 3 Skin Characteristics: normal color, warm/dry (Chrissy Peters DO) Assessment/Plan Agree with plan as outlined above Diverticulitis with perf and 1.8cm abscess Surgery attempting conservative management with zosyn/flagyl Blood cx pending (Chrissy Peters DO)
[2016-08-15 15:16] VITALS: BP 131/86; PULSE 81; TEMP 37.1; O2SAT 95
[2016-08-15 22:55] VITALS: BP 112/73; PULSE 76; TEMP 37.6; O2SAT 96
[2016-08-16] MEDS: METRONIDAZOLE / NSS 500 MG in PREMIXED NSS 100 ML IV SCH ×3 (03:17→19:16)
[2016-08-16] MEDS: D5NSS + 20MEQ KCL 1,000 ML IV SCH (04:07)
[2016-08-16 04:55] LABS: BASO % 0.2 %; BASO ABS # 0.02 K/uL (0-0.2); COMPLETE YES; EOS % 1.3 %; HEMATOCRIT 36.8 % (42-52); IG% 0.3 %; LYMPH % 14.8 %; LYMPH ABS # 1.92 K/uL (1.2-3.4); MEAN CELL VOLUME 86.2 fL (80-100); MEAN CORPUSCULAR HEMOGLOBIN 29.3 pg (25-34); MEAN PLATELET VOLUME 10.2 fL (7.4-10.4); MONO % 9.8 %; NEUT % 73.6 %; PLATELET COUNT 222 K/uL (130-400); RED BLOOD COUNT 4.27 M/uL (4.7-6.1); WHITE BLOOD COUNT 12.98 K/uL (4.8-10.8)
[2016-08-16 05:16] LABS: BUN/CREATININE RATIO 6.9 (10-20); CALCIUM 8.2 mg/dl (8.5-10.1); CREATININE 0.9 mg/dl (0.60-1.40); POTASSIUM 4.2 mmol/L (3.5-5.1)
[2016-08-16 07:07] VITALS: BP 134/82; PULSE 81; TEMP 36.9; O2SAT 95
[2016-08-16] MEDS: PIPERACILL/TAZOBAC IV 3.375 GM in DEXTROSE 5% 100ML 100 ML IV SCH ×3 (07:30→23:32)
--- NOTE | 2016-08-16 07:41 | Surgery Progress Note ---
Surgery Progress Note Date of Service Aug 16, 2016. Subjective feeling much better, taking nothing for pain, has headache wants ice pack(had it in ER), some burning with urination Objective Vital Signs: Date Time Temp Pulse Resp B/P (MAP) Pulse Ox O2 Delivery O2 Flow Rate FiO2 08/16/16 07:07 36.9 81 17 134/82 (99) 95 Room Air 08/15/16 23:45 Room Air 08/15/16 22:55 37.6 76 16 112/73 (86) 96 Room Air 08/15/16 15:30 Room Air 08/15/16 15:16 37.1 81 18 131/86 (101) 95 Room Air 08/15/16 07:55 Room Air Abdomen: + pertinent finding (much softer loc tenderness left lower quadrant dec) Laboratory Results: Results Past 24 Hours Test 08/16/16 04:41 Range/Units White Blood Count 12.98 4.8-10.8 K/uL Red Blood Count 4.27 4.7-6.1 M/uL Hemoglobin 12.5 14.0-18.0 g/dL Hematocrit 36.8 42-52 % Mean Corpuscular Volume 86.2 80-100 fL Mean Corpuscular Hemoglobin 29.3 25-34 pg Mean Corpuscular Hemoglobin Concent 34.0 32-36 g/dl Platelet Count 222 130-400 K/uL Mean Platelet Volume 10.2 7.4-10.4 fL Neutrophils (%) (Auto) 73.6 % Lymphocytes (%) (Auto) 14.8 % Monocytes (%) (Auto) 9.8 % Eosinophils (%) (Auto) 1.3 % Basophils (%) (Auto) 0.2 % Neutrophils # (Auto) 9.56 1.4-6.5 K/uL Lymphocytes # (Auto) 1.92 1.2-3.4 K/uL Monocytes # (Auto) 1.27 0.11-0.59 K/uL Eosinophils # (Auto) 0.17 0-0.5 K/uL Basophils # (Auto) 0.02 0-0.2 K/uL RDW Standard Deviation 41.7 36.4-46.3 fL RDW Coefficient of Variation 13.1 11.5-14.5 % Immature Granulocyte % (Auto) 0.3 % Immature Granulocyte # (Auto) 0.04 0.00-0.02 K/uL Sodium Level 140 136-145 mmol/L Potassium Level 4.2 3.5-5.1 mmol/L Chloride Level 109 98-107 mmol/L Carbon Dioxide Level 28 21-32 mmol/L Anion Gap 3.0 3-11 mmol/L Blood Urea Nitrogen 6 7-18 mg/dl Creatinine 0.90 0.60-1.40 mg/dl Est Creatinine Clear Calc Drug Dose 140.2 ml/min Estimated GFR () 129.6 Estimated GFR (Non- 111.8 BUN/Creatinine Ratio 6.9 10-20 Random Glucose 123 70-99 mg/dl Calcium Level 8.2 8.5-10.1 mg/dl Assessment & Plan 08/16/16 better bm starting, lab noted mother at bedside and discussed situation with her all questions answered will check urine, start diet, shower 08/15/16 continue non operative mangement but keep close watch clinical picture lab noted vitals noted So at bedside continue non operative mangement but keep close watch clinical picture lab noted vitals noted So at bedside
[2016-08-16 10:59] LABS: URINE APPEARANCE CLEAR (CLEAR); URINE BILIRUBIN NEG (NEG); URINE COLOR YELLOW; URINE NITRITE NEG (NEG); URINE SPECIFIC GRAVITY 1.014 (1.000-1.030); UROBILINOGEN NEG (NEG)
[2016-08-16 11:10] LABS: MANUAL MICROSCOPIC REQUIRED? NO; REVIEW REQ? NO
--- NOTE | 2016-08-16 13:46 | Progress Note ---
Subjective Date of Service: Aug 16, 2016. Subjective Pt evaluation today including: conversation w/ patient, conversation w/ family Pt feeling ongoing improvement. Still with LLQ pain with ambulation and moving around in the bed. Awaiting initial trial of PO. No fevers, n/v. Has not needed zofran or pain meds since early in admission. Pt denies fever, SOB, chest pain, c/d, LE pain or swelling. Problem List Medical Problems: (1) Diverticulitis large intestine w/o perforation or abscess w/o bleeding Status: Acute (2) Diverticulitis of intestine with perforation and abscess Status: Acute Review of Systems All Other Systems: Reviewed and Negative Objective Vital Signs Date Time Temp Pulse Resp B/P (MAP) Pulse Ox O2 Delivery O2 Flow Rate FiO2 08/16/16 07:30 Room Air 08/16/16 07:07 36.9 81 17 134/82 (99) 95 Room Air 08/15/16 23:45 Room Air 08/15/16 22:55 37.6 76 16 112/73 (86) 96 Room Air 08/15/16 15:30 Room Air 08/15/16 15:16 37.1 81 18 131/86 (101) 95 Room Air Physical Exam General Appearance: no apparent distress, + obese Eyes: normal inspection, EOMI Respiratory/Chest: normal breath sounds, no respiratory distress Cardiovascular: regular rate, rhythm, no edema Abdomen: soft, + distended (improving), + tenderness (LLQ only today) Extremities: non-tender, no pedal edema Neurologic/Psychiatric: alert, normal mood/affect, oriented x 3 Skin: normal color, warm/dry Laboratory Results Last 24 Hours Test 08/16/16 04:41 08/16/16 10:48 White Blood Count 12.98 K/uL Red Blood Count 4.27 M/uL Hemoglobin 12.5 g/dL Hematocrit 36.8 % Mean Corpuscular Volume 86.2 fL Mean Corpuscular Hemoglobin 29.3 pg Mean Corpuscular Hemoglobin Concent 34.0 g/dl Platelet Count 222 K/uL Mean Platelet Volume 10.2 fL Neutrophils (%) (Auto) 73.6 % Lymphocytes (%) (Auto) 14.8 % Monocytes (%) (Auto) 9.8 % Eosinophils (%) (Auto) 1.3 % Basophils (%) (Auto) 0.2 % Neutrophils # (Auto) 9.56 K/uL Lymphocytes # (Auto) 1.92 K/uL Monocytes # (Auto) 1.27 K/uL Eosinophils # (Auto) 0.17 K/uL Basophils # (Auto) 0.02 K/uL RDW Standard Deviation 41.7 fL RDW Coefficient of Variation 13.1 % Immature Granulocyte % (Auto) 0.3 % Immature Granulocyte # (Auto) 0.04 K/uL Sodium Level 140 mmol/L Potassium Level 4.2 mmol/L Chloride Level 109 mmol/L Carbon Dioxide Level 28 mmol/L Anion Gap 3.0 mmol/L Blood Urea Nitrogen 6 mg/dl Creatinine 0.90 mg/dl Est Creatinine Clear Calc Drug Dose 140.2 ml/min Estimated GFR () 129.6 Estimated GFR (Non- 111.8 BUN/Creatinine Ratio 6.9 Random Glucose 123 mg/dl Calcium Level 8.2 mg/dl Urine Color YELLOW Urine Appearance CLEAR Urine pH 7.0 Urine Specific [place] 1.014 Urine Protein NEG Urine Glucose (UA) NEG Urine Ketones NEG Urine Occult Blood NEG Urine Nitrite NEG Urine Bilirubin NEG Urine Urobilinogen NEG Urine Leukocyte Esterase NEG Assessment and Plan 1. Acute Sigmoid Diverticulitis with Microperforation and Abscess Formation: -- Continue IV Fluids, ice chips, advance diet as per surgery. IV Zosyn, Flagyl, PRN antiemetics and pain meds Surgery is following and attempting conservative management at this time WBC improving PRP WNL Blood cx neg on prelim Continued [facility] stay due to: fever, inadequate po fluid intake, multiple IV medications needed Discharge planning: uncertain
[2016-08-16 15:09] VITALS: BP 126/88; PULSE 71; TEMP 37; O2SAT 98
[2016-08-16] MEDS ORDERED: NURSING VERBAL MED ORDER ONE (21:00)
[2016-08-16 23:00] VITALS: BP 126/77; PULSE 73; TEMP 37; O2SAT 96
[2016-08-16] MEDS: ONDANSETRON INJ 2 MG/ML 2 ML VIAL IV PRN (23:32)
[2016-08-17] MEDS: METRONIDAZOLE / NSS 500 MG in PREMIXED NSS 100 ML IV SCH ×3 (02:38→19:20)
[2016-08-17] MEDS: PIPERACILL/TAZOBAC IV 3.375 GM in DEXTROSE 5% 100ML 100 ML IV SCH ×2 (07:22→16:08)
[2016-08-17 07:48] VITALS: BP 126/85; PULSE 63; TEMP 36.8; O2SAT 95
--- NOTE | 2016-08-17 07:48 | Surgery Progress Note ---
Surgery Progress Note Date of Service Aug 17, 2016. Subjective + bowel movement, + pain controlled, No nausea, No vomiting Patient reports improvement in headache. No bowel movement overnight- no bowel movement yet this AM. Denies nausea or vomiting. Objective Vital Signs: Date Time Temp Pulse Resp B/P (MAP) Pulse Ox O2 Delivery O2 Flow Rate FiO2 08/16/16 23:30 Room Air 08/16/16 23:00 37.0 73 16 126/77 (93) 96 Room Air 08/16/16 16:00 Room Air 08/16/16 15:09 37.0 71 18 126/88 (101) 98 Room Air General Appearance: WD/WN Abdomen: + pertinent finding (mild discomfort with palpation. ) Laboratory Results: Results Past 24 Hours Test 08/16/16 10:48 Range/Units Urine Color YELLOW Urine Appearance CLEAR CLEAR Urine pH 7.0 4.5-7.5 Urine Specific [place] 1.014 1.000-1.030 Urine Protein NEG NEG Urine Glucose (UA) NEG NEG Urine Ketones NEG NEG Urine Occult Blood NEG NEG Urine Nitrite NEG NEG Urine Bilirubin NEG NEG Urine Urobilinogen NEG NEG Urine Leukocyte Esterase NEG NEG Assessment & Plan Dr. Negrete in to see and examine patient. Improvement in headache. Tolerated clear liquids yesterday- will advance to full liquid diet today. Patient can shower. Will continue to treat with non-surgical measures- will follow clinical picture closely.
[2016-08-17 10:57] LABS: BASO % 0.4 %; BASO ABS # 0.04 K/uL (0-0.2); COMPLETE YES; HEMATOCRIT 40.1 % (42-52); IG% 0.4 %; LYMPH % 18.7 %; LYMPH ABS # 1.91 K/uL (1.2-3.4); MEAN CORPUSCULAR HEMOGLOBIN 29.3 pg (25-34); MEAN CORPUSCULAR HGB CONC 33.7 g/dl (32-36); MEAN PLATELET VOLUME 10.4 fL (7.4-10.4); MONO % 8.3 %; NEUT % 72.2 %; PLATELET COUNT 269 K/uL (130-400); RED BLOOD COUNT 4.61 M/uL (4.7-6.1); WHITE BLOOD COUNT 10.19 K/uL (4.8-10.8)
[2016-08-17 11:19] LABS: BUN/CREATININE RATIO 9.7 (10-20); CALCIUM 8.9 mg/dl (8.5-10.1); CREATININE 0.92 mg/dl (0.60-1.40); POTASSIUM 3.7 mmol/L (3.5-5.1)
--- NOTE | 2016-08-17 13:29 | Progress Note ---
Subjective Date of Service: Aug 17, 2016. Subjective Pt evaluation today including: conversation w/ patient, physical exam, chart review, lab review, review of studies, review of inpatient medication list Pt resting comfortably in bed Reports left lower quadrant abd pain with ambulation Tolerating full liquid diet No fevers, nausea or vomiting reported No further complaints Problem List Medical Problems: (1) Diverticulitis large intestine w/o perforation or abscess w/o bleeding Status: Acute (2) Diverticulitis of intestine with perforation and abscess Status: Acute Review of Systems Constitutional: No fever, No chills, No sweats, No weight loss, No weakness Eyes: No worsening of vision, No eye pain, No redness, No discharge ENT: No hearing loss, No unusual epistaxis, No nasal symptoms, No sore throat, No tinnitus Respiratory: No cough, No sputum, No wheezing, No shortness of breath, No dyspnea on exertion Cardiac: No chest pain, No orthopnea, No PND, No edema, No claudication Abdomen: + pain, No nausea, No vomiting, No diarrhea, No constipation, No GI bleeding Musculoskeletal: No joint pain, No muscle pain, No swelling Male : No dysuria, No urinary frequency, No incontinence, No slowing stream Neurologic: No memory loss, No paralysis, No weakness, No numbness/tingling Psychiatric: No depression symptoms, No anhedonism, No anxiety, No insomnia Heme: No abnormal bleeding/bruising, No clotting problems Skin: No rash, No itch Objective Vital Signs Date Time Temp Pulse Resp B/P (MAP) Pulse Ox O2 Delivery O2 Flow Rate FiO2 08/17/16 07:48 36.8 63 16 126/85 (99) 95 Room Air 08/17/16 07:15 Room Air 08/16/16 23:30 Room Air 08/16/16 23:00 37.0 73 16 126/77 (93) 96 Room Air 08/16/16 16:00 Room Air 08/16/16 15:09 37.0 71 18 126/88 (101) 98 Room Air Physical Exam General Appearance: WD/WN, no apparent distress ENT: normal ENT inspection, hearing grossly normal, TMs normal, pharynx normal Neck: supple, no adenopathy, thyroid normal, no JVD Respiratory/Chest: chest non-tender, lungs clear, normal breath sounds, no respiratory distress Cardiovascular: regular rate, rhythm, no edema, no gallop, no JVD Abdomen: normal bowel sounds, non tender, soft, no organomegaly Neurologic/Psychiatric: no motor/sensory deficits, alert, normal mood/affect, oriented x 3 Laboratory Results Last 24 Hours Test 08/17/16 10:37 White Blood Count 10.19 K/uL Red Blood Count 4.61 M/uL Hemoglobin 13.5 g/dL Hematocrit 40.1 % Mean Corpuscular Volume 87.0 fL Mean Corpuscular Hemoglobin 29.3 pg Mean Corpuscular Hemoglobin Concent 33.7 g/dl Platelet Count 269 K/uL Mean Platelet Volume 10.4 fL Neutrophils (%) (Auto) 72.2 % Lymphocytes (%) (Auto) 18.7 % Monocytes (%) (Auto) 8.3 % Eosinophils (%) (Auto) 0.0 % Basophils (%) (Auto) 0.4 % Neutrophils # (Auto) 7.35 K/uL Lymphocytes # (Auto) 1.91 K/uL Monocytes # (Auto) 0.85 K/uL Eosinophils # (Auto) 0.00 K/uL Basophils # (Auto) 0.04 K/uL RDW Standard Deviation 41.8 fL RDW Coefficient of Variation 13.1 % Immature Granulocyte % (Auto) 0.4 % Immature Granulocyte # (Auto) 0.04 K/uL Sodium Level 140 mmol/L Potassium Level 3.7 mmol/L Chloride Level 107 mmol/L Carbon Dioxide Level 26 mmol/L Anion Gap 7.0 mmol/L Blood Urea Nitrogen 9 mg/dl Creatinine 0.92 mg/dl Est Creatinine Clear Calc Drug Dose 137.1 ml/min Estimated GFR () 126.2 Estimated GFR (Non- 108.9 BUN/Creatinine Ratio 9.7 Random Glucose 120 mg/dl Calcium Level 8.9 mg/dl Assessment and Plan Acute Sigmoid Diverticulitis with Microperforation and Abscess Formation Pt reports pain is about the same and worse with ambulation, bont dilaudid 0.5 mg IV PRN pain in addition to perocet 5/325 q 4 hrs PRN pain Tolerating full liquid diet, advancement per surgery No fevers Leukocytosis resolved from 12-->10 Cont zosyn 3.375 IV q 8hrs and flagyl 500 mg IV q 8 hrs Blood cx neg at this time Likely DC in next 24 hrs Appreciate surg recs Continued [facility] stay due to: fever, inadequate po fluid intake, multiple IV medications needed Discharge planning: uncertain
[2016-08-17 15:03] VITALS: BP 119/76; PULSE 66; TEMP 37.1; O2SAT 96
[2016-08-17 23:00] VITALS: BP 107/74; PULSE 70; TEMP 36.9; O2SAT 98
[2016-08-17] MEDS ORDERED: NURSING VERBAL MED ORDER ONE (23:45)
[2016-08-18] MEDS: DiphenhydrAMINE HCL 12.5MG/5 ML UDC PO PRN ×2 (00:17→15:01)
[2016-08-18] MEDS: PIPERACILL/TAZOBAC IV 3.375 GM in DEXTROSE 5% 100ML 100 ML IV SCH ×4 (00:18→23:47)
[2016-08-18] MEDS: METRONIDAZOLE / NSS 500 MG in PREMIXED NSS 100 ML IV SCH ×3 (03:18→18:49)
--- NOTE | 2016-08-18 05:32 | Surgery Progress Note ---
Surgery Progress Note Date of Service Aug 18, 2016. Subjective feels much better not had anything for pain abd soft plan increase diet, keep here for today and likely send home tomorrow on po antibiotics Objective Vital Signs: Date Time Temp Pulse Resp B/P (MAP) Pulse Ox O2 Delivery O2 Flow Rate FiO2 08/17/16 23:00 36.9 70 16 107/74 (85) 98 Room Air 08/17/16 19:50 Room Air 08/17/16 15:03 37.1 66 18 119/76 (90) 96 Room Air 08/17/16 07:48 36.8 63 16 126/85 (99) 95 Room Air 08/17/16 07:15 Room Air Laboratory Results: Results Past 24 Hours Test 08/17/16 10:37 08/18/16 04:44 Range/Units White Blood Count 10.19 4.8-10.8 K/uL Red Blood Count 4.61 4.7-6.1 M/uL Hemoglobin 13.5 14.0-18.0 g/dL Hematocrit 40.1 42-52 % Mean Corpuscular Volume 87.0 80-100 fL Mean Corpuscular Hemoglobin 29.3 25-34 pg Mean Corpuscular Hemoglobin Concent 33.7 32-36 g/dl Platelet Count 269 130-400 K/uL Mean Platelet Volume 10.4 7.4-10.4 fL Neutrophils (%) (Auto) 72.2 % Lymphocytes (%) (Auto) 18.7 % Monocytes (%) (Auto) 8.3 % Eosinophils (%) (Auto) 0.0 % Basophils (%) (Auto) 0.4 % Neutrophils # (Auto) 7.35 1.4-6.5 K/uL Lymphocytes # (Auto) 1.91 1.2-3.4 K/uL Monocytes # (Auto) 0.85 0.11-0.59 K/uL Eosinophils # (Auto) 0.00 0-0.5 K/uL Basophils # (Auto) 0.04 0-0.2 K/uL RDW Standard Deviation 41.8 36.4-46.3 fL RDW Coefficient of Variation 13.1 11.5-14.5 % Immature Granulocyte % (Auto) 0.4 % Immature Granulocyte # (Auto) 0.04 0.00-0.02 K/uL Sodium Level 140 136-145 mmol/L Potassium Level 3.7 3.5-5.1 mmol/L Chloride Level 107 98-107 mmol/L Carbon Dioxide Level 26 21-32 mmol/L Anion Gap 7.0 3-11 mmol/L Blood Urea Nitrogen 9 7-18 mg/dl Creatinine 0.92 0.60-1.40 mg/dl Est Creatinine Clear Calc Drug Dose 137.1 ml/min Estimated GFR () 126.2 Estimated GFR (Non- 108.9 BUN/Creatinine Ratio 9.7 10-20 Random Glucose 120 70-99 mg/dl Calcium Level 8.9 8.5-10.1 mg/dl Assessment & Plan 08/16/16 better bm starting, lab noted mother at bedside and discussed situation with her all questions answered will check urine, start diet, shower 08/15/16 continue non operative mangement but keep close watch clinical picture lab noted vitals noted So at bedside 08/16/16 better bm starting, lab noted mother at bedside and discussed situation with her all questions answered will check urine, start diet, shower 08/15/16 continue non operative mangement but keep close watch clinical picture lab noted vitals noted So at bedside
[2016-08-18 07:01] LABS: CREATININE 1.1 mg/dl (0.60-1.40)
[2016-08-18 07:31] VITALS: O2SAT 95
[2016-08-18 07:58] VITALS: BP 110/84; PULSE 76; TEMP 37.1; O2SAT 95
[2016-08-18] MEDS: ONDANSETRON INJ 2 MG/ML 2 ML VIAL IV PRN (08:19)
[2016-08-18] MEDS ORDERED: PROMETHAZINE HCL INJ 12.5 MG in SODIUM CHLORIDE 0.9% 50ML 50 ML IV PRN (10:30)
--- NOTE | 2016-08-18 13:58 | Progress Note ---
Subjective Date of Service: Aug 18, 2016. Subjective Pt evaluation today including: conversation w/ patient, physical exam, chart review, lab review, review of studies, review of inpatient medication list Reports some nausea this AM and left lower quadrant pain on ambulation but not worsening No fevers or chills Tolerating low residue diet No acute events overnight Problem List Medical Problems: (1) Diverticulitis large intestine w/o perforation or abscess w/o bleeding Status: Acute (2) Diverticulitis of intestine with perforation and abscess Status: Acute Review of Systems Constitutional: No fever, No chills, No sweats, No weight loss, No weakness Eyes: No worsening of vision, No eye pain, No redness, No discharge Respiratory: No cough, No sputum, No wheezing, No shortness of breath, No dyspnea on exertion Cardiac: No chest pain, No orthopnea, No PND, No edema, No claudication Abdomen: + pain, No nausea, No vomiting, No diarrhea, No constipation Musculoskeletal: No joint pain, No muscle pain, No swelling, No calf pain Male : No dysuria, No urinary frequency, No incontinence, No slowing stream Neurologic: No memory loss, No paralysis, No weakness, No numbness/tingling Psychiatric: No depression symptoms, No anhedonism, No anxiety, No insomnia Endo: No fatigue, No excessive thirst Skin: No rash, No itch Objective Vital Signs Date Time Temp Pulse Resp B/P (MAP) Pulse Ox O2 Delivery O2 Flow Rate FiO2 08/18/16 07:58 37.1 76 16 110/84 (93) 95 Room Air 08/18/16 07:50 Room Air 08/18/16 07:31 95 Room Air 08/17/16 23:00 36.9 70 16 107/74 (85) 98 Room Air 08/17/16 19:50 Room Air 08/17/16 15:03 37.1 66 18 119/76 (90) 96 Room Air Physical Exam General Appearance: WD/WN, no apparent distress Eyes: normal inspection, PERRL, EOMI, sclerae normal ENT: normal ENT inspection, hearing grossly normal, TMs normal, pharynx normal Neck: supple, no adenopathy, thyroid normal, no JVD Respiratory/Chest: chest non-tender, lungs clear, normal breath sounds, no respiratory distress Cardiovascular: regular rate, rhythm, no edema, no gallop, no JVD Abdomen: normal bowel sounds, non tender, soft, no organomegaly Extremities: normal range of motion, non-tender, normal inspection, no pedal edema Neurologic/Psychiatric: no motor/sensory deficits, alert, normal mood/affect, oriented x 3 Laboratory Results Last 24 Hours Test 08/18/16 05:56 Creatinine 1.10 mg/dl Est Creatinine Clear Calc Drug Dose 114.7 ml/min Estimated GFR () 101.7 Estimated GFR (Non- 87.7 Assessment and Plan Acute Sigmoid Diverticulitis with Microperforation and Abscess Formation Pain better controlled Cont dilaudid 0.5 mg IV PRN pain in addition to perocet 5/325 q 4 hrs PRN pain Tolerating low residue diet, advancement per surgery Leukocytosis resolved from 12-->10 Cont zosyn 3.375 IV q 8hrs and flagyl 500 mg IV q 8 hrs, likely DC in AM and discharge on PO antibiotics Blood cx NGTD Appreciate surg recs Continued [facility] stay due to: fever, inadequate po fluid intake, multiple IV medications needed Discharge planning: uncertain
[2016-08-18 14:46] VITALS: BP 112/72; PULSE 67; TEMP 36.5; O2SAT 95
[2016-08-18 23:13] VITALS: BP 126/79; PULSE 64; TEMP 36.8; O2SAT 97
[2016-08-19] MEDS: METRONIDAZOLE / NSS 500 MG in PREMIXED NSS 100 ML IV SCH ×2 (03:28→11:29)
[2016-08-19 07:24] LABS: CREATININE 1.1 mg/dl (0.60-1.40)
[2016-08-19 07:42] VITALS: BP 98/70; PULSE 70; TEMP 36.8; O2SAT 97
--- NOTE | 2016-08-19 07:46 | Surgery Progress Note ---
Surgery Progress Note Date of Service Aug 19, 2016. Subjective + feeling well, + bowel movement, + flatus, + pain controlled Patient reports that he is doing much better today- much improved since admission. Notes some mild nausea yesterday after meals. Objective Vital Signs: Date Time Temp Pulse Resp B/P (MAP) Pulse Ox O2 Delivery O2 Flow Rate FiO2 08/19/16 07:42 36.8 70 14 98/70 (79) 97 Room Air 08/18/16 23:13 36.8 64 15 126/79 (95) 97 Room Air 08/18/16 20:00 Room Air 08/18/16 14:46 36.5 67 16 112/72 (85) 95 Room Air 08/18/16 07:58 37.1 76 16 110/84 (93) 95 Room Air 08/18/16 07:50 Room Air General Appearance: WD/WN, no apparent distress Abdomen: normal bowel sounds, non tender, non distended, soft Laboratory Results: Results Past 24 Hours Test 08/19/16 06:20 Range/Units Creatinine 1.10 0.60-1.40 mg/dl Est Creatinine Clear Calc Drug Dose 114.7 ml/min Estimated GFR () 101.7 Estimated GFR (Non- 87.7 Assessment & Plan Dr. Negrete in to see and examine patient. Patient doing well- ok for discharge today. Will provide patient with PRN Zofran and PO antibiotics. Will follow-up with General Surgery next week. Work note provided.
--- NOTE | 2016-08-19 07:52 | Discharge Instructions ---
Discharge Instructions Date of Service Aug 19, 2016. Admission Reason for Admission: Diverticulitis Of Intestine With Perforation And Discharge Discharge Diagnosis / Problem: Diverticulitis of Intestine with Perforation Discharge Goals Goal(s): Decrease discomfort, Improve function Activity Recommendations Activity Limitations: as noted below Exercise/Sports Limitations: until after follow-up appointment May Resume Sexual Activity: when tolerated Shower/Bathe: no limitations Driving or Machine Use: no limitations . Instructions / Follow-Up Instructions / Follow-Up Diet Recommendation- Start to slowly add low-fiber foods. Please follow-up with Dr. Negrete in the office next week. Please call the office at [phone] to make an appointment. Our office is located at [address] [place] [address] [place] [address]. Please call the office with any questions or concerns. Current Hospital Diet Patient's current hospital diet: Low Fiber Diet Discharge Diet Recommended Diet: Low Fiber Diet Pending Studies Studies pending at discharge: no Medical Emergencies . Who to Call and When: Medical Emergencies: If at any time you feel your situation is an emergency, please call 911 immediately. . Non-Emergent Contact Non-Emergency issues call your: Primary Care Provider, Surgeon Call Non-Emergent contact if: your pain is not controlled, your pain is worsening . "Provider Documentation" section prepared by Sintia Gale. . VTE Core Measure Inpt VTE Proph given/why not?: SCD's
[2016-08-19] MEDS ORDERED: ONDA4TAB65 PO (08:00)
--- NOTE | 2016-08-19 08:07 | Surgery Progress Note ---
Surgery Progress Note Date of Service Aug 19, 2016. Subjective + feeling well occ nausea, no abd discomfort has bms Objective Vital Signs: Date Time Temp Pulse Resp B/P (MAP) Pulse Ox O2 Delivery O2 Flow Rate FiO2 08/19/16 07:42 36.8 70 14 98/70 (79) 97 Room Air 08/18/16 23:13 36.8 64 15 126/79 (95) 97 Room Air 08/18/16 20:00 Room Air 08/18/16 14:46 36.5 67 16 112/72 (85) 95 Room Air Abdomen: + pertinent finding (soft non tender no fullness) Laboratory Results: Results Past 24 Hours Test 08/19/16 06:20 Range/Units Creatinine 1.10 0.60-1.40 mg/dl Est Creatinine Clear Calc Drug Dose 114.7 ml/min Estimated GFR () 101.7 Estimated GFR (Non- 87.7 Assessment & Plan 08/19/16 fells well overall, tolerating diet no pain plan d/c today return office 1 week continue with cipro 500mg bid and Flagyl 500 mg tid for another week until seen in office no restriction on activity keep low fiber diet 08/16/16 better bm starting, lab noted mother at bedside and discussed situation with her all questions answered will check urine, start diet, shower 08/15/16 continue non operative mangement but keep close watch clinical picture lab noted vitals noted So at bedside 08/16/16 better bm starting, lab noted mother at bedside and discussed situation with her all questions answered will check urine, start diet, shower 08/15/16 continue non operative mangement but keep close watch clinical picture lab noted vitals noted So at bedside
[2016-08-19] MEDS ORDERED: METR-163 PO ×2 (08:13→08:16)
[2016-08-19] MEDS ORDERED: CPR500 PO ×2 (08:13→08:16)
[2016-08-19] MEDS: PIPERACILL/TAZOBAC IV 3.375 GM in DEXTROSE 5% 100ML 100 ML IV SCH (08:44)
[2016-08-19 09:24] VITALS: O2SAT 97
[2016-08-19] MEDS ORDERED: BISACODYL 5 MG TABEC PO ONE (11:45)
--- NOTE | 2016-08-19 12:19 | Discharge Instructions ---
Discharge Instructions Date of Service Aug 19, 2016. Admission Reason for Admission: Diverticulitis Of Intestine With Perforation And Discharge Discharge Diagnosis / Problem: Diverticulitis with microperforation and abscess Discharge Goals Goal(s): Decrease discomfort, Improve function, Increase independence, Improve disease control, Learn about illness, Diagnostic testing Activity Recommendations Activity Limitations: resume your previous activity Exercise/Sports Limitations: none Shower/Bathe: no limitations . Instructions / Follow-Up Instructions / Follow-Up Patient to be discharged home Please finish taking antibiotic cipro 500 mg tablet twice a day and flagyl 500 mg three times a day for 1 week Can take zofran as needed every 6 hrs for nausea Please follow up with Dr Negrete in 1-2 weeks If worsening pain, nausea, fevers>100 F please report to ER Current Hospital Diet Patient's current hospital diet: Low Fiber Diet Discharge Diet Recommended Diet: Low Fiber Diet Pending Studies Studies pending at discharge: no Medical Emergencies . Who to Call and When: Medical Emergencies: If at any time you feel your situation is an emergency, please call 911 immediately. . Non-Emergent Contact Non-Emergency issues call your: Primary Care Provider Call Non-Emergent contact if: you have a fever, your pain is worsening . . "Provider Documentation" section prepared by Louie Garcia. . VTE Core Measure Inpt VTE Proph given/why not?: SCD's
--- NOTE | 2016-08-19 12:59 | Discharge Summary ---
Discharge Summary Date of Service Aug 19, 2016. Discharge Summary Admission Date: Aug 14, 2016 at 19:44 Discharge Date: Aug 19, 2016 Discharge Disposition: Home Principal Diagnosis: Diverticulitis with microperforation and abscess Consultations: General surgery Medication Reconciliation New Medications: Ciprofloxacin (Ciprofloxacin HCl) 500 Mg Tab 500 MG PO BID for 7 Days, #14 Metronidazole (Flagyl) 500 Mg Tab 500 MG PO TID for 7 Days, #21 TAB Ondansetron Hcl (Zofran) 4 Mg Tab 1 TAB PO Q6H PRN for Nausea for 7 Days, #28 TAB 1 Refill Continued Medications: Acetaminophen (Tylenol) 500 Mg Tab 500 MG PO UD, TAB TAKE PER PACKAGE DIRECTIONS Discontinued Medications: Ciprofloxacin Hcl (Cipro) 500 Mg Tab 500 MG PO BID for 10 Days, #20 TAB Metronidazole (Flagyl) 500 Mg Tab 500 MG PO BID for 10 Days, #20 TAB Discharge Exam Review of Systems: Constitutional: No fever, No chills, No sweats, No weight loss, No weakness Eyes: No worsening of vision, No eye pain, No redness, No discharge ENT: No hearing loss, No unusual epistaxis, No nasal symptoms, No sore throat, No tinnitus Respiratory: No cough, No sputum, No wheezing, No shortness of breath, No dyspnea on exertion Cardiovascular: No chest pain, No orthopnea, No PND, No edema Abdomen: + constipation, No pain, No nausea, No vomiting, No diarrhea Musculoskeletal: No joint pain, No muscle pain, No swelling, No calf pain Genitourinary - Male: No hematuria, No dysuria, No urinary frequency, No urinary urgency Neurologic: No memory loss, No paralysis, No weakness, No numbness/tingling Psychiatric: No depression symptoms, No anhedonism, No anxiety, No insomnia Endocrine: No fatigue, No excessive thirst Hematologic / Lymphatic: No abnormal bleeding/bruising, No clotting problems Integumentary: No rash, No itch Physical Exam: General Appearance: WD/WN, no apparent distress Eyes: normal inspection, PERRL, EOMI, sclerae normal Neck: supple, no adenopathy, thyroid normal, no JVD Respiratory/Chest: chest non-tender, lungs clear, normal breath sounds, no respiratory distress Cardiovascular: regular rate, rhythm, no edema, no gallop, no JVD Abdomen / GI: normal bowel sounds, non tender, soft, no organomegaly Extremities: normal inspection, no calf tenderness, normal capillary refill , no pedal edema Neurologic/Psychiatric: no motor/sensory deficits, alert, normal mood/affect , normal reflexes Skin: normal color, warm/dry, no rash Lymphatic: no adenopathy Hospital Course 31 y/o M no significant med history. Pt had visited the ER one day prior due to abdominal pain. He was diagnosed with diverticulitis and was prescribed Cipro/Flagyl and D/Cd. His abdominal pain has progressed and he developed fevers and returned to the ER. A CT abdomen revealed severe, acute, sigmoid diverticulitis with perforation and abscess. Acute Sigmoid Diverticulitis with Microperforation and Abscess Formation General surgery consulted and implemented conservative management Leukocytosis resolved, 19-->20-->12-->10 with 4 day antibiotics of zosyn and flagyl IV Blood cx NGTD Pain resolved, instructed to take tylenol 650 mg by mouth every 6 hrs as needed for pain Tolerating low residue diet, OK for discharge Discharge home with cipro 500 mg PO BID and flagyl 500 mg PO TID for 1 week in addition to zofran for nausea F/U with Dr Negrete in 1 week Total Time Spent: Greater than 30 minutes This includes examination of the patient, discharge planning, medication reconciliation, and communication with other providers. Discharge Instructions Please refer to the electronic Patient Visit Report (Discharge Instructions) for additional information.
[2016-08-19 13:21] VITALS: BP 98/70; PULSE 70; TEMP 36.8; O2SAT 97
== END 2016-08-19 13:55 | disposition home or self-care (01) | DRG 392 ==
LOC: C.EDB 16:24 → C.MSN 19:44 → ENRESERV 20:16
PROVIDERS: ADMIT Internal Medicine; ATTEND Hospitalist
DX: K57.20 Diverticulitis of large intestine with perforation and abscess without bleeding (principal); N13.30 Unspecified hydronephrosis; Z83.79 Family history of other diseases of the digestive system; Z84.1 Family history of disorders of kidney and ureter

== ENCOUNTER → 2016-09-01 | Outpatient (CLI) | payer BC ==
[~2016-09-01] MED LIST changes: +ACET-1256 PO; -CIPR1TAB10 PO; +CPR500 PO; -HYDR-5688 PO; +ONDA4TAB65 PO; +OPTIRAY 320 IV PRN; -PRED10TA PO
--- NOTE | 2016-09-01 09:48 | DIAGNOSTIC IMAGING REPORT ---
ABD/PELVIS IV AND ORAL CONT HISTORY: 31 years-old Male K57.92 diverticulitis follow-up exam. Acute abdominal pain. COMPARISON: CT abdomen and pelvis 08/14/2016 and 08/13/2016. TECHNIQUE: Multiple axial CT images of the abdomen and pelvis were obtained following the intravenous administration of 116 mL Optiray 320. Oral contrast was also used. A dose lowering technique was used consistent with the principals of JASPREET. FINDINGS: There is minimal dependent bibasilar atelectasis. The inferior cardiac chambers are unremarkable. No pneumoperitoneum is seen within the upper abdomen. The liver, gallbladder, pancreas and adrenal glands appear normal. There is redemonstration of a nonspecific 6 x 10 mm low attenuating lesion of the subcapsular inferior spleen as seen on image 131, unchanged and statistically benign. The bilateral kidneys appear to be within normal limits. There is no renal calculi or hydronephrosis identified. Mild dilation of the distal left ureter is again seen without obstructing stone or calculus, likely reactive secondary to the inflammatory pelvic changes as discussed below. There is mild wall thickening of a partially collapsed bladder lumen which may also be reactive. There are small fat filled inguinal hernias. Prostate is unremarkable. The abdominal aorta is normal in course and caliber. No bulky adenopathy. Portal vein is patent. There is no bowel obstruction. There are progressive inflammatory changes involving the mid sigmoid colon surrounding diverticuli. There is thickening of the adjacent peritoneum with circumferential wall thickening of the involved sigmoid colon. The degree of inflammatory changes appears slightly improved, however there is persistent loculated foci of air and mesenteric inflammatory stranding within the sigmoid mesocolon without loculated peripherally enhancing borders overall, 2.6 x 1.0 cm seen on image 69 of the axial series, previously 2.7 x 1.1 cm on image 74 of the comparison study. This likely represents a contained perforation or developing abscess. Normal appendix. Soft tissues are unremarkable. Bones are intact. IMPRESSION: 1. Mildly improved appearance of the previously documented acute sigmoid diverticulitis with decreased amount of inflammatory changes within the sigmoid mesocolon. 2. Focus of inflammatory stranding and extra luminal air are again seen adjacent to the mid sigmoid colon overall measuring up to 2.6 x 1.0 cm, unchanged in size from comparison compatible with contained perforation/developing abscess without well loculated margins or drainable collection identified. 3. Mild wall thickening of the bladder lumen may be reactive change. There is also likely reactive dilation of the distal left ureter. 4. Normal appendix. The above report was generated using voice recognition software. It may contain grammatical, syntax or spelling errors. Electronically signed by: Wale Carranza M.D. 09/01/2016 9:47 AM Dictated Date/Time: 09/01/2016 9:35 AM
== END | disposition home or self-care (01) ==
LOC: C.CTS 09:08
PROVIDERS: ATTEND Surgery
DX: K57.92 Diverticulitis of intestine, part unspecified, without perforation or abscess without bleeding (principal)

== ENCOUNTER 2016-11-26 22:04 | Emergency (ER) | payer BC ==
[~2016-11-26] VITALS: Ht 177.8 cm; Wt 98.7 kg
[~2016-11-26 22:04] MED LIST changes: -OPTIRAY 320 IV PRN
[2016-11-26 22:11] VITALS: Ht 177.8 cm; Wt 98.7 kg
[2016-11-26] MEDS ORDERED: SODIUM CHLORIDE 0.9% 1000ML 1,000 ML IV STA (22:36)
[2016-11-26] MEDS ORDERED: ONDANSETRON INJ 2 MG/ML 2 ML VIAL IV STA (22:36)
--- NOTE | 2016-11-26 22:46 | EMERGENCY ROOM VISIT NOTE ---
History Report prepared by Lucho: Marquise Gross Under the Supervision of: Dr. Chalo Meadows D.O. First contact with patient: 22:30 Chief Complaint: ABDOMINAL PAIN Stated Complaint: PAIN IN LOWER LEFT ABDOMEN Nursing Triage Summary: lower left abdominal. hx diverticulitis. denies n/v/d History of Present Illness The patient is a 31 year old male who presents to the Emergency Room with complaints of constant lower left abdominal pain that started today. He rates his pain as an 8/10 in severity. The patient states that he was diagnosed with diverticulitis over the summer, but admits it had cleared up. He reports that he went to have a colonoscopy done yesterday, which showed a microperforation. The patient states that he also took biopsies. He reports that today he started to experience abdominal pain and difficulty urinating and having a bowel movement. The patient states that around 2100 he started to experience a fever of 102. He reports that he called his doctor who told him to report to the ED. He admits that he is currently nauseous. The patient states that he does not have a PCP. He denies any rectal bleeding, antibiotics, and vomiting. Source of History: patient Onset: today Position: abdomen (LLQ) Symptom Intensity: 8/10 Timing: constant Associated Symptoms: + nausea, + urinary symptoms, No vomiting Review of Systems See HPI for pertinent positives & negatives. A total of 10 systems reviewed and were otherwise negative. Past Medical & Surgical Medical Problems: (1) Diverticulitis Family History Diabetes mellitus Gallbladder disease Heart disease Hypertension Kidney disease Kidney stones Social History Smoking Status: Never Smoker Alcohol Use: none Housing Status: lives with family Occupation Status: employed Current/Historical Medications Scheduled Ciprofloxacin Hcl (Cipro), 500 MG PO BID Metronidazole (Flagyl), 500 MG PO TID Ondasetron Odt (Zofran Odt), 4 MG SL Q6H Scheduled PRN Oxycodone Immediate Rel Tab (Roxicodone Ir), 1-2 TAB PO Q4H PRN for Severe Pain Allergies Coded Allergies: Hydrocodone (Verified Adverse Reaction, Unknown, NAUSEA, 11/26/16) Physical Exam Vital Signs Date Time Temp Pulse Resp B/P (MAP) Pulse Ox O2 Delivery O2 Flow Rate FiO2 11/27/16 00:26 37.2 97 18 124/86 96 11/26/16 23:43 96 18 120/76 94 Room Air 11/26/16 22:11 37.6 98 16 116/79 96 Room Air Physical Exam GENERAL: Patient is awake, alert, and somewhat anxious appearing and uncomfortable. EYES: The conjunctivae are clear. The pupils are round and reactive. EARS, NOSE, MOUTH AND THROAT: The nose is without any evidence of any deformity. Mucous membranes are moist tongue is midline NECK: The neck is nontender and supple. RESPIRATORY: Normal respiratory effort is noted there is no evidence of wheezing rhonchi or rales CARDIOVASCULAR: Regular rate and rhythm noted there no murmurs rubs or gallops normal S1 normal S2 GASTROINTESTINAL: The abdomen is moderately distended but soft. Diffusely tender with guarding in the left lower quadrant. PELVIS: The Pelvis is stable. No tenderness to palpation is noted. MUSCULOSKELETAL/EXTREMITIES: There is no evidence of gross deformity full range of motion is noted in the hips and shoulders SKIN: There is no obvious evidence of any rash. There are no petechiae, pallor or cyanosis noted. NEUROLOGIC: Patient is awake alert and oriented x3 strength is symmetric patellar reflexes are 2+ bilaterally Medical Decision & Procedures ER Provider Diagnostic Interpretation: CT the abdomen and pelvis was obtained in emergency department. The report was reviewed. Preliminary Findings Only See Final Report For Complete Findings CT ABDOMEN & PELVIS Without Contrast: Sigmoid diverticulitis with surrounding inflammatory changes. No drainable collection. Unremarkable appendix. Radiologist: Toby Sarmiento M.D. Study ready at 23:15 and initial results transmitted at 23:29 Laboratory Results 11/26/16 22:50 Red Blood Count 5.29, Mean Corpuscular Volume 84.7, Mean Corpuscular Hemoglobin 30.2, Mean Corpuscular Hemoglobin Concent 35.7, Mean Platelet Volume 10.8, Neutrophils (%) (Auto) 78.0, Lymphocytes (%) (Auto) 13.1, Monocytes (%) (Auto) 8.1, Eosinophils (%) (Auto) 0.3, Basophils (%) (Auto) 0.2, Neutrophils # (Auto) 9.30, Lymphocytes # (Auto) 1.56, Monocytes # (Auto) 0.96, Eosinophils # (Auto) 0.03, Basophils # (Auto) 0.02 11/26/16 22:50 Test 11/26/16 22:40 10/19/17 22:50 Urine Color YELLOW Urine Appearance CLEAR (CLEAR) Urine pH 5.0 (4.5-7.5) Urine Specific [place] 1.023 (1.000-1.030) Urine Protein NEG (NEG) Urine Glucose (UA) NEG (NEG) Urine Ketones NEG (NEG) Urine Occult Blood NEG (NEG) Urine Nitrite NEG (NEG) Urine Bilirubin NEG (NEG) Urine Urobilinogen NEG (NEG) Urine Leukocyte Esterase NEG (NEG) White Blood Count 11.91 K/uL (4.8-10.8) Red Blood Count 5.29 M/uL (4.7-6.1) Hemoglobin 16.0 g/dL (14.0-18.0) Hematocrit 44.8 % (42-52) Mean Corpuscular Volume 84.7 fL (80-100) Mean Corpuscular Hemoglobin 30.2 pg (25-34) Mean Corpuscular Hemoglobin Concent 35.7 g/dl (32-36) Platelet Count 255 K/uL (130-400) Mean Platelet Volume 10.8 fL (7.4-10.4) Neutrophils (%) (Auto) 78.0 % Lymphocytes (%) (Auto) 13.1 % Monocytes (%) (Auto) 8.1 % Eosinophils (%) (Auto) 0.3 % Basophils (%) (Auto) 0.2 % Neutrophils # (Auto) 9.30 K/uL (1.4-6.5) Lymphocytes # (Auto) 1.56 K/uL (1.2-3.4) Monocytes # (Auto) 0.96 K/uL (0.11-0.59) Eosinophils # (Auto) 0.03 K/uL (0-0.5) Basophils # (Auto) 0.02 K/uL (0-0.2) RDW Standard Deviation 40.8 fL (36.4-46.3) RDW Coefficient of Variation 13.3 % (11.5-14.5) Immature Granulocyte % (Auto) 0.3 % Immature Granulocyte # (Auto) 0.04 K/uL (0.00-0.02) Anion Gap 9.0 mmol/L (3-11) Est Creatinine Clear Calc Drug Dose 104.9 ml/min Estimated GFR () 93.4 Estimated GFR (Non- 80.6 BUN/Creatinine Ratio 13.4 (10-20) Calcium Level 9.1 mg/dl (8.5-10.1) Total Bilirubin 0.8 mg/dl (0.2-1) Direct Bilirubin 0.1 mg/dl (0-0.2) Aspartate Amino Transf (AST/SGOT) 24 U/L (15-37) Alanine Aminotransferase (ALT/SGPT) 45 U/L (12-78) Alkaline Phosphatase 86 U/L (45-117) Total Protein 8.3 gm/dl (6.4-8.2) Albumin 4.1 gm/dl (3.4-5.0) Lipase 112 U/L (73-393) Laboratory results per my review. Medications Administered Medications (Trade) Dose Ordered Sig/[place] Route Start Time Stop Time Status Last Admin Dose Admin Sodium Chloride 1,000 ml @ 999 mls/hr Q1H1M STAT IV 11/26/16 22:36 11/26/16 23:36 DC 11/26/16 22:49 999 MLS/HR Ondansetron HCl (Zofran Inj) 4 mg NOW STAT IV 11/26/16 22:36 11/26/16 22:37 DC 11/26/16 22:49 4 MG Ciprofloxacin (Cipro Tab) 500 mg NOW STAT PO 11/26/16 23:34 11/26/16 23:35 DC 11/26/16 23:41 500 MG Metronidazole (Flagyl Tab) 500 mg NOW STAT PO 11/26/16 23:34 11/26/16 23:35 DC 11/26/16 23:42 500 MG Ciprofloxacin (Cipro 500MG Home Pack) 1 homepack UD ONCE PO 11/27/16 00:15 11/27/16 00:16 DC 11/27/16 00:11 1 HOMEPACK Oxycodone HCl (Roxicodone Immediate Rel 5MG Home Pack) 1 homepack UD ONCE PO 11/27/16 00:15 11/27/16 00:16 DC 11/27/16 00:11 1 HOMEPACK Ondansetron HCl (ZOFRAN ODT 4MG Home Pack) 1 homepack UD ONCE PO 11/27/16 00:15 11/27/16 00:16 DC 11/27/16 00:10 1 HOMEPACK Morphine Sulfate (MoRPHine SULFATE INJ) 4 mg NOW STAT IV 11/27/16 00:02 11/27/16 00:04 DC 11/27/16 00:11 4 MG ED Course 2235: The patient was evaluated in room B08. A complete history and physical examination were performed. 2236: Ordered Zofran Injection 4 mg IV, Sodium Chloride 1000 ml @ 999 mls/hr IV. 2334: Ordered Flagyl Tab 500 mg PO, Cipro Tab 500 mg PO. 0002: Ordered Morphine Sulfate 4 mg IV. 0015: Ondansetron HCl 1 homepack PO, Oxycodone HCl 1 homepack PO, Ciprofloxacin 1 homepack PO. 0030: Upon reevaluation, the patient is resting comfortably. I discussed the results and treatment plan with him. The patient verbalized agreement of the treatment plan. He was discharged home. Medical Decision Prior records/ancillary studies reviewed. Triage Nursing notes reviewed. Additional history obtained from patient. The patient's history was concerning for abdominal pain. Differential diagnosis: Etiologies such as appendicitis, diverticulitis, PUD, biliary pathology, UTI, pancreatitis, obstruction, mesenteric ischemia, aortic pathology, infections, inflammatory bowel disease, renal colic, as well as others were entertained. The patient is a 31-year-old male who presented to the emergency department for evaluation of left lower quadrant abdominal pain. The patient does have a history of diverticulitis. His history physical exam appeared to be consistent with diverticulitis but he had a recent colonoscopy and has a history of microperforation. This reason a CT abdomen and pelvis was obtained. The patient was treated with IV fluids and antibiotics in the emergency department. I discussed the patient's laboratory and radiographic studies with him. 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 Otherwise she was encouraged to return to the emergency department immediately if symptoms change worsen or the need arises. Medication Reconcilliation Current Medication List: was personally reviewed by me Blood Pressure Screening Patient's blood pressure: Normal blood pressure Impression Primary Impression: LLQ abdominal pain Additional Impression: Diverticulitis Scribe Attestation The scribe's documentation has been prepared under my direction and personally reviewed by me in its entirety. I confirm that the note above accurately reflects all work, treatment, procedures, and medical decision making performed by me. Departure Information Dispostion Home / Self-Care Prescriptions Ondasetron Odt (ZOFRAN ODT) 4 Mg Tab 4 MG SL Q6H for Nausea, #15 TAB Prov: Chalo Meadows, DO 11/27/16 Oxycodone Immediate Rel Tab (ROXICODONE IR) 5 Mg Tab 1-2 TAB PO Q4H Y for Severe Pain, #24 TAB Prov: Chalo Meadows, DO 11/27/16 Metronidazole (FLAGYL) 500 Mg Tab 500 MG PO TID, #30 TAB Prov: Chalo Meadows, DO 11/27/16 Ciprofloxacin Hcl (CIPRO) 500 Mg Tab 500 MG PO BID, #20 TAB Prov: Chalo Meadows, DO 11/27/16 Referrals No Doctor, Assigned (PCP) Forms Call Back Authorization, HOME CARE DOCUMENTATION FORM, IMPORTANT VISIT INFORMATION Patient Instructions ED Diverticulitis, [facility] Additional Instructions Call your surgeon to schedule a follow-up appointment. Drink plenty clear liquids. Continue using Motrin and Tylenol for mild pain. Problem Qualifiers Additional Impression: Diverticulitis Diverticulitis site: large intestine Diverticulitis bleeding: without bleeding Diverticulitis complication: with perforation and without abscess Qualified Codes: K57.20 - Diverticulitis of large intestine with perforation and abscess without bleeding
[2016-11-26 23:03] LABS: URINE APPEARANCE CLEAR (CLEAR); URINE BILIRUBIN NEG (NEG); URINE COLOR YELLOW; URINE NITRITE NEG (NEG); URINE SPECIFIC GRAVITY 1.023 (1.000-1.030); UROBILINOGEN NEG (NEG)
[2016-11-26 23:04] LABS: MANUAL MICROSCOPIC REQUIRED? NO; REVIEW REQ? NO
[2016-11-26 23:06] LABS: BASO % 0.2 %; BASO ABS # 0.02 K/uL (0-0.2); COMPLETE YES; EOS % 0.3 %; HEMATOCRIT 44.8 % (42-52); IG% 0.3 %; LYMPH % 13.1 %; LYMPH ABS # 1.56 K/uL (1.2-3.4); MEAN CELL VOLUME 84.7 fL (80-100); MEAN CORPUSCULAR HEMOGLOBIN 30.2 pg (25-34); MEAN CORPUSCULAR HGB CONC 35.7 g/dl (32-36); MEAN PLATELET VOLUME 10.8 fL (7.4-10.4); MONO % 8.1 %; PLATELET COUNT 255 K/uL (130-400); RED BLOOD COUNT 5.29 M/uL (4.7-6.1); WHITE BLOOD COUNT 11.91 K/uL (4.8-10.8)
[2016-11-26 23:25] LABS: BUN/CREATININE RATIO 13.4 (10-20); CALCIUM 9.1 mg/dl (8.5-10.1); CREATININE 1.18 mg/dl (0.60-1.40)
[2016-11-26] MEDS ORDERED: METRONIDAZOLE 250 MG TAB PO STA (23:34)
[2016-11-26] MEDS ORDERED: CIPROFLOXACIN 500 MG TAB PO STA (23:34)
[2016-11-27] MEDS ORDERED: MoRPHine SULFATE 4 MG/ML 1 ML CARP\\VIAL IV STA (00:02)
[2016-11-27] MEDS ORDERED: ONDANSETRON HOME PACK 4MG OD TAB PO ONE (00:15)
[2016-11-27] MEDS ORDERED: CIPROFLOXACIN 500MG HOME PACK PO ONE (00:15)
[2016-11-27] MEDS ORDERED: OXYCODONE IR HOME PACK PO ONE (00:15)
[2016-11-27] MEDS ORDERED: OXYC1TAB3 PO (00:18)
[2016-11-27] MEDS ORDERED: CIPR-255 PO (00:18)
[2016-11-27] MEDS ORDERED: ONDA4TAB10 SL (00:18)
[2016-11-27] MEDS ORDERED: METR-162 PO (00:18)
[2016-11-27 00:26] VITALS: BP 124/86; PULSE 97; TEMP 37.2; O2SAT 96
--- NOTE | 2016-11-27 07:25 | DIAGNOSTIC IMAGING REPORT ---
ABDOMEN AND PELVIS CT WITHOUT CONTRAST CT DOSE: 892.74 mGy.cm HISTORY: Left lower quadrant abdominal pain. Fever. TECHNIQUE: Multiaxial CT images of the abdomen and pelvis were performed without contrast. A dose lowering technique was utilized adhering to the principles of ALARA. COMPARISON STUDY: Abdomen and pelvis CT 09/01/2016. FINDINGS: Stable 4 mm hypodense lesion within the left hepatic dome. The unenhanced spleen, kidneys, adrenal glands, gallbladder, and pancreas are unremarkable. No retroperitoneal lymphadenopathy. Tiny fat-containing umbilical hernia. The bladder is decompressed. Focal area of bowel wall thickening within the proximal sigmoid colon with surrounding inflammatory change suggestive of acute diverticulitis. This is slightly improved compared the prior study. The extraluminal gas collection seen on the prior study has resolved. No evidence for bowel obstruction. Normal appendix. IMPRESSION: 1. Slight improvement in the sigmoid diverticulitis with resolution of the extraluminal gas collection. However, the long-standing inflammatory process at this location raises the possibility of underlying mass. Follow-up nonemergent colonoscopy is recommended for confirmation. 2. No evidence for bowel obstruction. Electronically signed by: Sarabjit Clark M.D. 11/27/2016 7:24 AM Dictated Date/Time: 11/27/2016 7:19 AM
== END 2016-11-27 00:28 | disposition home or self-care (01) ==
LOC: C.EDB 22:06
DX: R10.32 Left lower quadrant pain (principal); K57.92 Diverticulitis of intestine, part unspecified, without perforation or abscess without bleeding; Z83.3 Family history of diabetes mellitus; Z82.49 Family history of ischemic heart disease and other diseases of the circulatory system

== ENCOUNTER 2017-01-09 18:00 | Emergency (ER) | payer BC ==
[~2017-01-09] VITALS: Ht 177.8 cm; Wt 101.1 kg
[~2017-01-09 18:00] MED LIST changes: -ACET-1256 PO; +CIPR-255 PO; -CPR500 PO; -METR-163 PO; +ONDA4TAB10 SL; -ONDA4TAB65 PO; +OXYC1TAB3 PO
[2017-01-09 18:02] VITALS: TEMP 36.4; Ht 177.8 cm; Wt 101.1 kg
[2017-01-09] MEDS ORDERED: ONDANSETRON INJ 2 MG/ML 2 ML VIAL IV STA (18:18)
--- NOTE | 2017-01-09 18:39 | EMERGENCY ROOM VISIT NOTE ---
History Report prepared by Lucho: Brittany Weiner Under the Supervision of: Dr. Noe Lizarraga M.D. First contact with patient: 18:05 Chief Complaint: ABDOMINAL PAIN Stated Complaint: LOW STOMACH PAIN Nursing Triage Summary: Pt c/o lower left abdominal pain since 2pm, getting worse. Hx Diverticulitis. Just completed augmentin for Diverticulitis. History of Present Illness The patient is a 31 year old white male with a past medical history of diverticulitis who presents to the ED with a cc of worsening abdominal pain beginning today. The patient describes the pain as crampy and sharp. He notes that it feels like past episodes of diverticulitis. He reports that the pain is in the LLQ, which is where it usually is. Positive hematochezia and dark urine. Negative nausea, vomiting, fevers, and chills. He notes that he normally gets these symptoms, but is trying to catch it before it gets to this point. He notes that his last episode was in November right after a colonoscopy that had found small mouthed diverticulitis. The patient denies any findings of polyps and notes that his microbiopsy of his colon was negative. He denies a history of kidney stones. Source of History: patient Onset: today Position: abdomen (LLQ) Quality: sharp, cramping Timing: worsening Associated Symptoms: + hematochezia, + urinary symptoms, No fevers, No chills, No nausea, No vomiting Review of Systems See HPI for pertinent positives and negatives. A total of ten systems were reviewed and were otherwise negative. Past Medical & Surgical Medical Problems: (1) Diverticulitis Surgical Problems: (1) H/O wisdom tooth extraction Family History Diabetes mellitus FHx: colonic polyps Gallbladder disease Heart disease Hypertension Kidney disease Kidney stones Social History Smoking Status: Never Smoker Alcohol Use: none Drug Use: none Marital Status: single Housing Status: lives with family Occupation Status: employed Current/Historical Medications Scheduled Ciprofloxacin Hcl (Cipro), 1 TAB PO BID Dicyclomine Hcl (Bentyl), 20 MG PO BID Metronidazole (Flagyl), 500 MG PO TID Ondasetron Odt (Zofran Odt), 4 MG SL Q6H Tramadol Hcl (Ultram), 50 MG PO Q8H Allergies Coded Allergies: Hydrocodone (Verified Adverse Reaction, Unknown, NAUSEA, 01/09/17) Physical Exam Vital Signs Date Time Temp Pulse Resp B/P (MAP) Pulse Ox O2 Delivery O2 Flow Rate FiO2 01/09/17 20:24 72 20 123/79 95 01/09/17 18:54 67 01/09/17 18:02 36.4 71 16 154/95 99 Room Air Physical Exam GENERAL: Awake, alert, well-appearing, NAD HENT: Normocephalic, atraumatic. EYES: Normal conjunctiva. Sclera non-icteric. NECK: Supple. No nuchal rigidity. FROM. RESPIRATORY: CTAB, no rhonchi, wheezing, crackles CARDIAC: RRR, no MRG ABDOMEN: Soft, BS+, LLQ and mild suprapubic ttp. Pain in LLQ with palpation to RLQ. Negative obturators. Negative psoas. MSK: No chest wall TTP, no LE edema NEURO: GCS 15, CN 2-12 intact, moves all 4s on command SKIN: No rash or jaundice noted. Medical Decision & Procedures ER Provider Diagnostic Interpretation: Radiology results as stated below per my review and radiologist interpretation: KUB HISTORY: Acute generalized abdominal pain ABDOMINAL PAIN/GI COMPARISON: CT abdomen and pelvis 11/26/2016 FINDINGS: The bowel gas pattern is non-obstructive. There is no organomegaly. No renal calculi. No ureteral calculi. Multiple phleboliths are seen within the pelvis. No pneumoperitoneum or pneumatosis. No fracture. The ribs at T12 are hypoplastic. IMPRESSION: 1. Nonobstructive bowel gas pattern. 2. No urolith identified. Electronically signed by: Wale Carranza M.D. 01/09/2017 7:09 PM Dictated Date/Time: 01/09/2017 7:06 PM Laboratory Results 01/09/17 18:30 Red Blood Count 5.04, Mean Corpuscular Volume 86.1, Mean Corpuscular Hemoglobin 30.2, Mean Corpuscular Hemoglobin Concent 35.0, Mean Platelet Volume 10.5, Neutrophils (%) (Auto) 61.3, Lymphocytes (%) (Auto) 28.9, Monocytes (%) (Auto) 7.9, Eosinophils (%) (Auto) 1.4, Basophils (%) (Auto) 0.3, Neutrophils # (Auto) 7.75, Lymphocytes # (Auto) 3.66, Monocytes # (Auto) 1.00, Eosinophils # (Auto) 0.18, Basophils # (Auto) 0.04 01/09/17 18:30 Test 01/09/17 18:30 White Blood Count 12.66 K/uL (4.8-10.8) Red Blood Count 5.04 M/uL (4.7-6.1) Hemoglobin 15.2 g/dL (14.0-18.0) Hematocrit 43.4 % (42-52) Mean Corpuscular Volume 86.1 fL (80-100) Mean Corpuscular Hemoglobin 30.2 pg (25-34) Mean Corpuscular Hemoglobin Concent 35.0 g/dl (32-36) Platelet Count 258 K/uL (130-400) Mean Platelet Volume 10.5 fL (7.4-10.4) Neutrophils (%) (Auto) 61.3 % Lymphocytes (%) (Auto) 28.9 % Monocytes (%) (Auto) 7.9 % Eosinophils (%) (Auto) 1.4 % Basophils (%) (Auto) 0.3 % Neutrophils # (Auto) 7.75 K/uL (1.4-6.5) Lymphocytes # (Auto) 3.66 K/uL (1.2-3.4) Monocytes # (Auto) 1.00 K/uL (0.11-0.59) Eosinophils # (Auto) 0.18 K/uL (0-0.5) Basophils # (Auto) 0.04 K/uL (0-0.2) RDW Standard Deviation 41.2 fL (36.4-46.3) RDW Coefficient of Variation 13.1 % (11.5-14.5) Immature Granulocyte % (Auto) 0.2 % Immature Granulocyte # (Auto) 0.03 K/uL (0.00-0.02) Urine Color YELLOW Urine Appearance CLEAR (CLEAR) Urine pH 6.5 (4.5-7.5) Urine Specific [place] 1.029 (1.000-1.030) Urine Protein NEG (NEG) Urine Glucose (UA) NEG (NEG) Urine Ketones TRACE (NEG) Urine Occult Blood NEG (NEG) Urine Nitrite NEG (NEG) Urine Bilirubin NEG (NEG) Urine Urobilinogen NEG (NEG) Urine Leukocyte Esterase NEG (NEG) Anion Gap 6.0 mmol/L (3-11) Est Creatinine Clear Calc Drug Dose 122.7 ml/min Estimated GFR () 111.4 Estimated GFR (Non- 96.1 BUN/Creatinine Ratio 14.9 (10-20) Calcium Level 8.6 mg/dl (8.5-10.1) Total Bilirubin 0.4 mg/dl (0.2-1) Direct Bilirubin < 0.1 mg/dl (0-0.2) Aspartate Amino Transf (AST/SGOT) 27 U/L (15-37) Alanine Aminotransferase (ALT/SGPT) 45 U/L (12-78) Alkaline Phosphatase 73 U/L (45-117) Total Protein 7.6 gm/dl (6.4-8.2) Albumin 3.7 gm/dl (3.4-5.0) Lipase 148 U/L (73-393) Laboratory results reviewed by me Medications Administered Medications (Trade) Dose Ordered Sig/Seymour Route Start Time Stop Time Status Last Admin Dose Admin Ondansetron HCl (Zofran Inj) 4 mg NOW STAT IV 01/09/17 18:18 01/09/17 18:19 DC 01/09/17 18:42 4 MG Morphine Sulfate (MoRPHine SULFATE INJ) 4 mg NOW STAT IV 01/09/17 19:13 01/09/17 19:15 DC 01/09/17 19:25 4 MG Ciprofloxacin (Cipro Tab) 500 mg NOW STAT PO 01/09/17 19:13 01/09/17 19:15 DC 01/09/17 19:24 500 MG Metronidazole (Flagyl Tab) 500 mg NOW STAT PO 01/09/17 19:13 01/09/17 19:15 DC 01/09/17 19:24 500 MG Ketorolac Tromethamine (Toradol Inj) 30 mg NOW STAT IV 01/09/17 19:14 01/09/17 19:15 DC 01/09/17 19:25 30 MG ED Course 1809: The patient was evaluated in room A4B. A complete history and physical exam was performed. 1911: I reevaluated the patient and he feels much better. 2012: I reevaluated the patient. Discussed results and discharge instructions: He verbalized understanding and agreement. The patient is ready for discharge. Medical Decision The patient is a 31 year old white male with a past medical history of diverticulitis who presents to the ED with a cc of worsening abdominal pain beginning today. Etiologies such as appendicitis, diverticulitis, PUD, biliary pathology, UTI, pancreatitis, obstruction, mesenteric ischemia, aortic pathology, infections, inflammatory bowel disease, renal colic, as well as others were entertained. Patient was seen and evaluated at the bedside. Patient stated that they had a prior history of diverticulitis and is have some left lower quadrant pain. Patient has had some chronic trace blood with wiping. Patient did have a recent colonoscopy which showed diverticulosis but without any diverticulitis noted hemorrhoids. No polyps were also seen. Patient does not have a family history of IBD. Patient does not take any blood thinning medications. Patient does have some mild left lower quadrant pain as well as suprapubic pain. With palpating the right lower quadrant the patient is pain left lower quadrant. Patient has negative obturators so as. Patient did have blood work completed along with supportive care and x-rays. Patient did not have an elevated white blood cell count. Patient's hemoglobin and platelet count were within normal limits. Patient had no elevations in LFTs or lipase. Patient has normal kidney function. Patient's pain was improved. Patient did not have any vomiting. Given the patient has a prior history of recurrent diverticulitis the patient was treated empirically as we discussed the benefits of treating versus getting a CT scan. Patient is amenable to this plan of care with the uterus patient feels any worse within the next 24-48 hours he should return to the emergency department for further evaluation and treatment and advanced imaging. Patient tolerated PO. Less likely appy given normal WBC, referred pain to LLQ when palpated in RLQ and neg obturator's/psoas. I believe the patient is suitable for outpatient follow-up and treatment. Patient was given strict follow -up, discharge, and return precautions. All questions were answered. Patient was deemed suitable for outpatient follow-up at this time. Patient agreed with the plan of care and was safely discharged home. Medication Reconcilliation Current Medication List: was personally reviewed by me Blood Pressure Screening Patient's blood pressure: Elevated blood pressure Blood pressure disposition: Elevated BP felt to be situational Impression Primary Impression: Abdominal pain Additional Impression: Diverticulitis Scribe Attestation The scribe's documentation has been prepared under my direction and personally reviewed by me in its entirety. I confirm that the note above accurately reflects all work, treatment, procedures, and medical decision making performed by me. Departure Information Dispostion Home / Self-Care Prescriptions Tramadol Hcl (ULTRAM) 50 Mg Tab 50 MG PO Q8H, #12 TAB PRN PAIN Prov: Noe Lizarraga M.D. 01/09/17 Metronidazole (FLAGYL) 500 Mg Tab 500 MG PO TID for 7 Days, #21 TAB Prov: Noe Lizarraga M.D. 01/09/17 Ciprofloxacin Hcl (CIPRO) 500 Mg Tab 1 TAB PO BID for 7 Days, #14 TAB Prov: Noe Lizarraga M.D. 01/09/17 Ondasetron Odt (ZOFRAN ODT) 4 Mg Tab 4 MG SL Q6H for Nausea, #6 TAB Prov: Noe Lizarraga M.D. 01/09/17 Dicyclomine Hcl (BENTYL) 20 Mg Tab 20 MG PO BID for 7 Days, #14 TAB Prov: Noe Lizarraga M.D. 01/09/17 Referrals No Doctor, Assigned (PCP) Forms Call Back Authorization, HOME CARE DOCUMENTATION FORM, IMPORTANT VISIT INFORMATION Patient Instructions Abdominal Pain, My [facility] Ambient Devices Additional Instructions Please return to the emergency department if you have worsening or recurrent symptoms not amenable to at-home treatment. Please call for a follow-up appointment with her primary care physician. Please take your medications as prescribed. If you have other concerns and/or complaints please feel free to also call your primary care physician's office or return the ED for further evaluation, management, and treatment. You received narcotic or benzodiazepene medication while in the emergency room today. This is an addictive medication that may cause drowziness as well as constipation. Do not drive, operate heavy machinery, or drink alcohol under the influence of this medication. You may take 600 mg Ibuprofen every 6 hours as needed for pain with food for no more than 2 consecutive days. You may take tylenol 1000 mg every 6 hours as needed for pain. You may take motrin and tylenol separately or at the same time. Take your medications as prescribed. If taking an antibiotic consider taking a probiotic and/or eating yogurt, but at the least, please take with food as it can cause upset stomach. You have been examined and treated today on an emergency basis only. This is not a substitute for, or an effort to provide, complete comprehensive medical care. It is impossible to recognize and treat all injuries or illnesses in a single emergency department visit. It is therefore important that you follow up closely with [facility], your PCP, and/or your specialist(s). Call as soon as possible for an appointment. Thank you for your time and consideration. I look forward to speaking with you again soon. Please don't hesitate to call us if you have any questions. Problem Qualifiers Primary Impression: Abdominal pain Abdominal location: left lower quadrant Qualified Codes: R10.32 - Left lower quadrant pain
[2017-01-09 18:46] LABS: BASO % 0.3 %; BASO ABS # 0.04 K/uL (0-0.2); COMPLETE YES; EOS % 1.4 %; HEMATOCRIT 43.4 % (42-52); IG% 0.2 %; LYMPH % 28.9 %; LYMPH ABS # 3.66 K/uL (1.2-3.4); MEAN CELL VOLUME 86.1 fL (80-100); MEAN CORPUSCULAR HEMOGLOBIN 30.2 pg (25-34); MEAN PLATELET VOLUME 10.5 fL (7.4-10.4); MONO % 7.9 %; NEUT % 61.3 %; PLATELET COUNT 258 K/uL (130-400); RED BLOOD COUNT 5.04 M/uL (4.7-6.1); WHITE BLOOD COUNT 12.66 K/uL (4.8-10.8)
[2017-01-09 19:05] LABS: ALT/SGPT 45 U/L (12-78); BLOOD UREA NITROGEN 15 mg/dl (7-18); BUN/CREATININE RATIO 14.9 (10-20); CALCIUM 8.6 mg/dl (8.5-10.1); CARBON DIOXIDE 30 mmol/L (21-32); CHLORIDE 105 mmol/L (98-107); CREATININE 1.02 mg/dl (0.60-1.40); GLUCOSE 82 mg/dl (70-99); POTASSIUM 3.8 mmol/L (3.5-5.1); SODIUM 140 mmol/L (136-145)
[2017-01-09 19:08] LABS: ALKALINE PHOSPHATASE 73 U/L (45-117); AST/SGOT 27 U/L (15-37)
--- NOTE | 2017-01-09 19:11 | DIAGNOSTIC IMAGING REPORT ---
KUB HISTORY: Acute generalized abdominal pain ABDOMINAL PAIN/GI COMPARISON: CT abdomen and pelvis 11/26/2016 FINDINGS: The bowel gas pattern is non-obstructive. There is no organomegaly. No renal calculi. No ureteral calculi. Multiple phleboliths are seen within the pelvis. No pneumoperitoneum or pneumatosis. No fracture. The ribs at T12 are hypoplastic. IMPRESSION: 1. Nonobstructive bowel gas pattern. 2. No urolith identified. Electronically signed by: Wale Carranza M.D. 01/09/2017 7:09 PM Dictated Date/Time: 01/09/2017 7:06 PM
[2017-01-09] MEDS ORDERED: MoRPHine SULFATE 4 MG/ML 1 ML CARP\\VIAL IV STA (19:13)
[2017-01-09] MEDS ORDERED: METRONIDAZOLE 250 MG TAB PO STA (19:13)
[2017-01-09] MEDS ORDERED: CIPROFLOXACIN 500 MG TAB PO STA (19:13)
[2017-01-09] MEDS ORDERED: KETOROLAC TROMETHAMINE 30 MG/ML VIAL IV STA (19:14)
[2017-01-09 19:39] LABS: URINE APPEARANCE CLEAR (CLEAR); URINE BILIRUBIN NEG (NEG); URINE COLOR YELLOW; URINE NITRITE NEG (NEG); URINE PH 6.5 (4.5-7.5); URINE SPECIFIC GRAVITY 1.029 (1.000-1.030); UROBILINOGEN NEG (NEG); ZZUR CULT IF INDIC CLEAN CATCH NO
[2017-01-09 19:41] LABS: MANUAL MICROSCOPIC REQUIRED? NO; REVIEW REQ? NO
[2017-01-09] MEDS ORDERED: CIPR-255 PO (19:47)
[2017-01-09] MEDS ORDERED: TRAM-453 PO (19:47)
[2017-01-09] MEDS ORDERED: DICY20TA35 PO (19:47)
[2017-01-09] MEDS ORDERED: METR500T PO (19:47)
[2017-01-09] MEDS ORDERED: ONDA4TAB10 SL (19:47)
[2017-01-09 20:24] VITALS: BP 123/79; PULSE 72; O2SAT 95
== END 2017-01-09 20:25 | disposition home or self-care (01) ==
LOC: C.EDB 18:01 → C.EDA 20:25
DX: K57.92 Diverticulitis of intestine, part unspecified, without perforation or abscess without bleeding (principal); R03.0 Elevated blood-pressure reading, without diagnosis of hypertension; Z83.3 Family history of diabetes mellitus; Z82.49 Family history of ischemic heart disease and other diseases of the circulatory system; Z84.1 Family history of disorders of kidney and ureter; Z83.79 Family history of other diseases of the digestive system

== ENCOUNTER 2017-02-04 06:50 | Inpatient (IN) | payer BC ==
[2017-01-21 11:18] VITALS: BMI 31.0
[2017-02-04] VITALS (10 sets, daily range): BP systolic 109–125; BP diastolic 71–83; PULSE 85–110; TEMP 36.4–37.3; O2SAT 94–98; BMI 31.0
[~2017-02-04] VITALS: Ht 177.8 cm; Wt 99.1 kg
[~2017-02-04 06:50] MED LIST changes: +ACET-1256 PO; -CIPR-255 PO; +CIPR1TAB11 PO; +IBUP-1450 PO; +LACTATED RINGER'S 1000ML 1,000 ML IV SCH; +METR-163 PO; -OXYC1TAB3 PO
[2017-02-04] MEDS ORDERED: EpHEDrine SULFATE INJ 50 MG/ML AMP IV PRN (07:45)
[2017-02-04] MEDS ORDERED: ONDANSETRON INJ 2 MG/ML 2 ML VIAL IV PRN ×2 (07:45→12:00)
[2017-02-04] MEDS ORDERED: PROMETHAZINE HCL INJ 12.5 MG in SODIUM CHLORIDE 0.9% 50ML 50 ML IV PRN (07:45)
[2017-02-04] MEDS ORDERED: ATROPINE SULFATE 0.1 MG/ML 5ML SYR IV PRN (07:45)
[2017-02-04] MEDS ORDERED: HYDROmorphone INJ 1 MG/ML SYR IV PRN ×2 (07:45→13:00)
--- NOTE | 2017-02-04 08:14 | History & Physical Bridge Note ---
H&P Re-Evaluation Bridge Note: I have examined the patient, reviewed the History & Physical and in the interval since the performance of the History & Physical I have noted the following changes of clinical significance: No changes noted family at bedside all questions answered
[2017-02-04] MEDS ORDERED: BUPIVACAINE 0.5 % 5 MG/1 ML MPF 30ML VIAL ONE (08:24)
[2017-02-04] MEDS ORDERED: LIDOCAINE HCL 2% 2 ML VIAL (20MG/ML) ONE (08:30)
[2017-02-04] MEDS ORDERED: DEXAMETHASONE SOD INJ 4 MG/ML VIAL ONE (08:30)
[2017-02-04] MEDS ORDERED: GLYCOPYRROLATE INJ 0.2 MG/ML VIAL ONE (08:30)
[2017-02-04] MEDS ORDERED: ONDANSETRON INJ 2 MG/ML 2 ML VIAL ONE ×2 (08:30→09:46)
[2017-02-04] MEDS ORDERED: PROPOFOL IV EMULSION 10 MG/ML 20 ML VIAL IV ONE (08:30)
[2017-02-04] MEDS ORDERED: NEOSTIGMINE METHYLSULFATE 5 MG/5 ML SYR ONE (08:30)
[2017-02-04] MEDS ORDERED: MIDAZOLAM HCL 1 MG/ML 2ML VIAL ONE (08:31)
[2017-02-04] MEDS ORDERED: FENTANYL CITRATE INJ 50 MCG/1 ML 2 ML VIAL ONE ×2 (08:31)
[2017-02-04] MEDS ORDERED: HYDROmorphone INJ 2 MG/ML SYR/VIAL ONE ×3 (08:33→12:45)
[2017-02-04] MEDS ORDERED: SODIUM CHLORIDE 0.9% INJ 10 ML VIAL ONE ×2 (08:33→09:45)
[2017-02-04] MEDS ORDERED: LARYING-O-JET KIT (LTA) ONE (08:33)
[2017-02-04] MEDS ORDERED: CEFOXITIN SOD 1 GM VIAL ONE (08:33)
[2017-02-04] MEDS ORDERED: ROCURONIUM BROMIDE 10 MG/ML 5 ML VIAL IV ONE ×2 (10:59→12:08)
[2017-02-04] MEDS ORDERED: SODIUM CHLORIDE 0.9% 1000ML 1,000 ML IV SCH (11:49)
[2017-02-04] MEDS ORDERED: MoRPHine SULFATE 1 MG/ML 50 ML PCA CASS IV PRN (12:00)
[2017-02-04] MEDS ORDERED: NALOXONE HCL 0.4 MG/1 ML VIAL/CARP IV PRN (12:00)
--- NOTE | 2017-02-04 12:01 | [facility] Operative Report ---
Operative Report Operative Date Feb 04, 2017. Pre-Operative Diagnosis Diverticulitis Post-Operative Diagnosis Diverticulitis Procedure(s) Performed Laparoscopic-Assisted Sigmoid Colon Resection Surgeon Dr. Negrete Pattern Grader Cutter Surgeon(s) Geoffrey Rubin PA-C Estimated Blood Loss 150ml Findings significant induration and adhesion abd wall of simoid colon Specimens a. sigmoid colon Drains 19 mona per stab in pelvis, 1/4 gabrielle sub cut Description of Procedure OR summary dictated confirmation number [id number] I attest to the content of the Intraoperative Record and any orders documented therein. Any exceptions are noted below.
[2017-02-04] MEDS: FENTANYL CITRATE INJ 50 MCG/1 ML 2 ML VIAL IV PRN ×4 (12:06→12:23)
[2017-02-04] MEDS ORDERED: MoRPHine SULFATE 1 MG/ML 50 ML PCA CASS ONE (12:36)
--- NOTE | 2017-02-04 13:14 | Anesthesiology Progress Note ---
Anesthesia Post Op Note Date & Time Feb 04, 2017 at 13:14 Vital Signs Pain Intensity: 5 Vital Signs Past 12 Hours Date Time Temp Pulse Resp B/P (MAP) Pulse Ox O2 Delivery O2 Flow Rate FiO2 02/04/17 13:05 83 16 125/79 96 Nasal Cannula 2 02/04/17 12:55 36.2 84 16 139/80 95 Nasal Cannula 2 02/04/17 12:45 85 16 125/85 95 Nasal Cannula 2 02/04/17 12:35 71 16 132/88 96 Nasal Cannula 2 02/04/17 12:25 84 16 129/90 97 Oxymask 10 02/04/17 12:15 70 16 141/89 97 Oxymask 10 02/04/17 12:06 75 16 146/75 99 Oxymask 10 02/04/17 11:57 36.4 82 16 139/79 98 Oxymask 10 02/04/17 07:10 36.8 110 18 119/77 98 Room Air Notes Mental Status: alert / awake / arousable, participated in evaluation Pt Amnestic to Procedure: Yes Nausea / Vomiting: adequately controlled Pain: adequately controlled Airway Patency, RR, SpO2: stable & adequate BP & HR: stable & adequate Hydration State: stable & adequate Anesthetic Complications: no major complications apparent
--- NOTE | 2017-02-04 13:23 | OPERATIVE REPORT ---
DATE OF OPERATION: 02/04/2017 PREOPERATIVE DIAGNOSIS: Recurrent diverticulitis refractory to medical therapy. POSTOPERATIVE DIAGNOSIS: Same was significant inflammation of the sigmoid colon adherent to the abdominal wall. PROCEDURE: Laparoscopic assisted sigmoid colon resection with primary side-to-end anastomosis. SURGEON: Dr. Negrete. WIRELESS CONSULTANT: Geoffrey Santos PA-C. OPERATION AND FINDINGS: SUMMARY: The patient was brought into the operating room under general anesthesia. Allen catheter was inserted. We placed in lithotomy position. The abdomen was prepped and shaved, Betadine solution and properly draped. Systemic antibiotics had been given. At this point, we made a small incision supraumbilically sufficient enough to place a Veress needle followed by a 5 mm trocar. Once we entered the abdomen, we could see the sigmoid colon was strictly adherent to the left lower quadrant abdominal wall. At this point, we placed a 5 mm right lower quadrant port with preemptive local analgesia 1% Xylocaine and a 5 mm left flank port. At this point, basically freed up the sigmoid attachment which was obviously very thickened to the left lower quadrant. We actually incised the peritoneum to avoid dissecting directly into this cavity that appeared to be very thickened sigmoid colon with possibly a residual from my perforation. Once we had freed this up, we did mostly blunt dissection, dissected all the way down to the pelvic brim where we could identify the ureter and avoided it. Our dissection was taken down further down the pelvis just by incising the peritoneum and we dissected d bluntly. We then freed up the white line of Toldt proximally way up to almost the splenic flexure, we had some oozing along that area which eventually was stopped.The patient had a very short mesentery and significant fatty tissue in all planes At this point, I felt we had enough mobilization of the descending colon to just go ahead and prepare for anastomosis and I felt due to the extent of the disease converted to an open procedure at this time. We made a small incision in the midline suprapubically approximately 3 inches long, deepened through subcutaneous tissue. We entered the abdominal cavity. At this point, the Bookwalter retractor was inserted. We were able to identify a really thickened sigmoid colon that we had mobilized. We then used a CARO stapler to resect the sigmoid colon right proximal to the inflammatory process which was free of any disease. Of note, even though we had mobilized significant descending colon it seemed like we had just enough mobility to make an anastomosis. Once we had freed up the mesentery to the sigmoid colon down to the rectal area. We used right angle clamps to fully divide the colon with the rectum. We identified the area again and avoided. The mesentery ligated with 2-0 silk sutures. At this point, the previous line of resection with the staple line on the sigmoid colon I elected to resect it a little bit more. There was more viable tissue when we applied another piece of the CARO. We then oversewed the staple line with 2-0 silk suture. We then did a side-to-end anastomosis using 3-0 silk outer layer and 3-0 chromic inner layer. The anastomosis did not have significant tension on it although I would have liked it better to have less tension. We felt we had mobilized the sigmoid descending colon sufficiently at this time and before. Otherwise, we would have had to make a longer incision and even immobilized towards the transverse colon. I did not think that was extent of the surgery that we needed to do at this time as far as I felt comfortable enough that the tension was minimal and that it should be fine. We left the Bassam drain down in the pelvis through a stab wound in left lower quadrant attached to a silk suture. The abdomen was then closed using 905 for the peritoneum and interrupted #1 PDS for the fascia. Quarter inch Alondra was left in the subQ, attached to skin edges proximally and distally with silk suture. [place] were used for the trocar sites and the incision. Dressing was applied. The procedure was tolerated well by the patient. Estimated blood loss approximately 150 mL. The patient was taken to recovery room in good condition. I attest to the content of the Intraoperative Record and any orders documented therein. Any exceptions are noted below. MTDD
--- NOTE | 2017-02-04 14:28 | NUR ---
A: Pt AAOx3, lungs clear on 2L, pt lethargic at this time, Morphine PROFESSIONAL DEVELOPMENT INSTRUCTOR in place- pt pushing very frequently and states he has "no relief"- contacted Geoffrey Hunt and stated he would put orders in to switch to dilaudid PROFESSIONAL DEVELOPMENT INSTRUCTOR. ABD/medipore to abdomen C/D/I. NATA intact LLQ. Allen in place, not nurse driven. Draining clear liquid. IVF infusing as ordered. Call calderon within reach. Family at bedside.
[2017-02-04] MEDS ORDERED: KETOROLAC TROMETHAMINE 30 MG/ML VIAL IV PRN (14:30)
[2017-02-04] MEDS ORDERED: KETOROLAC TROMETHAMINE 30 MG/ML VIAL IV STA (14:35)
[2017-02-04] MEDS: CEFOXITIN IV 2,000 MG in DEXTROSE 5% 50ML 50 ML IV SCH ×2 (14:46→20:57)
[2017-02-04 14:55] LABS: INR 1.1 (0.9-1.1)
[2017-02-04] MEDS ORDERED: NURSING VERBAL MED ORDER ONE ×2 (15:00→19:45)
--- NOTE | 2017-02-04 15:55 | Progress Note ---
Progress Note Date of Service Feb 04, 2017. Progress Note patient seen post op, discussed findings with him and his mother pain was not controlled with morphine DIGITAL RECRUITER doing better with prn dilaudid 1 mg q1h and scheduled Toradol could consider dilaudid DIGITAL RECRUITER but I suspect he may do better with higher dose less often
[2017-02-04] MEDS: LACTATED RINGER'S 1000ML 1,000 ML IV SCH (17:30)
[2017-02-04] MEDS ORDERED: HEPARIN SOD 5000 UNIT/0.5 ML CARP SQ SCH (19:00)
--- NOTE | 2017-02-04 21:00 | NUR ---
A: Patient stated to the WELLNESS TRAINER that he felt "wheezy." I came in to assess the patient. He has good color, denies SOB or cough. His pulse ox on room air was 93%. Upon auscultation his lungs had expiratory wheezes throughout, which he did not have earlier. The importance of ambulation and use of the triflo were stressed. Patient used his triflo 10xs to about 2000 each time. He denies any other complaints. Charge nurse made aware. Will continue to monitor for changes.
[2017-02-05] MEDS: LACTATED RINGER'S 1000ML 1,000 ML IV SCH ×4 (00:35→21:37)
[2017-02-05] MEDS ORDERED: NURSING VERBAL MED ORDER ONE ×2 (01:00→01:15)
--- NOTE | 2017-02-05 01:29 | NUR ---
ID: Patient AAOX4. Vitals WNL. Patient resting comfortably in bed. Patient has LR at 150ml/hr running in his left wrist. IV site is patent and asymptomatic. Patient is currently NPO except for ice chips/sips and medications. Patient is a one assist for ambulation. Patient is not complaining of any pain at this time. Patient has ABD with Medipore to abdomen with NATA drain on left lower quadrant of abdomen. Dressing is dry and intact and NATA drain is pulling minimum amount of serosanguineous fluid. Patient has a Allen in at this time and is producing cloudy yellow urine output. Allen is non nurse driven. Discharge plans uncertain at this time. Will monitor.
[2017-02-05] MEDS: CEFOXITIN IV 2,000 MG in DEXTROSE 5% 50ML 50 ML IV SCH (02:32)
[2017-02-05 03:56] VITALS: BP 119/76; PULSE 80; TEMP 37; O2SAT 94
[2017-02-05 06:12] LABS: HEMATOCRIT 38.5 % (42-52); HEMOGLOBIN 13.3 g/dL (14.0-18.0); IG# 0.04 K/uL (0.00-0.02); LYMPH % 8.9 %; LYMPH ABS # 1.15 K/uL (1.2-3.4); MEAN CELL VOLUME 86.3 fL (80-100); MEAN CORPUSCULAR HEMOGLOBIN 29.8 pg (25-34); MEAN CORPUSCULAR HGB CONC 34.5 g/dl (32-36); MEAN PLATELET VOLUME 10.6 fL (7.4-10.4); MONO % 9.6 %; MONO ABS # 1.24 K/uL (0.11-0.59); NEUT % 81.2 %; NEUT ABS # 10.55 K/uL (1.4-6.5); PLATELET COUNT 241 K/uL (130-400); RED CELL DISTRIBUTION WIDTH CV 13.4 % (11.5-14.5); RED CELL DISTRIBUTION WIDTH SD 42.4 fL (36.4-46.3); WHITE BLOOD COUNT 12.98 K/uL (4.8-10.8)
[2017-02-05 06:45] LABS: CALCIUM 8.4 mg/dl (8.5-10.1); CREATININE 0.97 mg/dl (0.60-1.40)
[2017-02-05 07:40] VITALS: BP 117/75; PULSE 80; TEMP 37.1; O2SAT 94
--- NOTE | 2017-02-05 07:45 | Surgery Progress Note ---
Surgery Progress Note Date of Service Feb 05, 2017. Subjective Post OP Day: 1 + pain controlled (better), No complaints Objective Vital Signs: Date Time Temp Pulse Resp B/P (MAP) Pulse Ox O2 Delivery O2 Flow Rate FiO2 02/05/17 03:56 37.0 80 18 119/76 (90) 94 Room Air 02/04/17 23:35 94 Room Air 02/04/17 23:32 37.3 85 17 113/74 (87) 94 Room Air 02/04/17 19:29 36.4 86 16 112/71 (85) 97 Room Air 02/04/17 19:15 97 Room Air 02/04/17 16:30 37.1 90 16 109/73 (85) 95 Nasal Cannula 2.0 02/04/17 15:45 36.5 90 16 118/76 (90) 95 Nasal Cannula 2.0 02/04/17 15:20 Nasal Cannula 2.0 02/04/17 14:30 36.9 101 16 119/83 (95) 96 Nasal Cannula 2.0 02/04/17 14:00 36.8 103 18 119/78 (92) 98 Nasal Cannula 2.0 02/04/17 13:30 37.2 96 18 125/82 (96) 98 Room Air 2.0 02/04/17 13:30 Room Air 02/04/17 13:30 Nasal Cannula 2.0 02/04/17 13:15 36.2 98 16 133/83 96 Nasal Cannula 2 02/04/17 13:05 83 16 125/79 96 Nasal Cannula 2 02/04/17 12:55 36.2 84 16 139/80 95 Nasal Cannula 2 02/04/17 12:45 85 16 125/85 95 Nasal Cannula 2 02/04/17 12:35 71 16 132/88 96 Nasal Cannula 2 02/04/17 12:25 84 16 129/90 97 Oxymask 10 02/04/17 12:15 70 16 141/89 97 Oxymask 10 02/04/17 12:06 75 16 146/75 99 Oxymask 10 02/04/17 11:57 36.4 82 16 139/79 98 Oxymask 10 Physical Exam: Bassam drainage (15), urine output (450/350) Abdomen: soft, + distended (slightly) Incision(s): clean, drainage (some from subQ gabrielle) Laboratory Results: Results Past 24 Hours Test 02/04/17 14:27 02/05/17 05:43 Range/Units Prothrombin Time 12.0 9.0-12.0 SECONDS Prothromb Time International Ratio 1.1 0.9-1.1 White Blood Count 12.98 4.8-10.8 K/uL Red Blood Count 4.46 4.7-6.1 M/uL Hemoglobin 13.3 14.0-18.0 g/dL Hematocrit 38.5 42-52 % Mean Corpuscular Volume 86.3 80-100 fL Mean Corpuscular Hemoglobin 29.8 25-34 pg Mean Corpuscular Hemoglobin Concent 34.5 32-36 g/dl Platelet Count 241 130-400 K/uL Mean Platelet Volume 10.6 7.4-10.4 fL Neutrophils (%) (Auto) 81.2 % Lymphocytes (%) (Auto) 8.9 % Monocytes (%) (Auto) 9.6 % Eosinophils (%) (Auto) 0.0 % Basophils (%) (Auto) 0.0 % Neutrophils # (Auto) 10.55 1.4-6.5 K/uL Lymphocytes # (Auto) 1.15 1.2-3.4 K/uL Monocytes # (Auto) 1.24 0.11-0.59 K/uL Eosinophils # (Auto) 0.00 0-0.5 K/uL Basophils # (Auto) 0.00 0-0.2 K/uL RDW Standard Deviation 42.4 36.4-46.3 fL RDW Coefficient of Variation 13.4 11.5-14.5 % Immature Granulocyte % (Auto) 0.3 % Immature Granulocyte # (Auto) 0.04 0.00-0.02 K/uL Sodium Level 136 136-145 mmol/L Potassium Level 4.0 3.5-5.1 mmol/L Chloride Level 104 98-107 mmol/L Carbon Dioxide Level 26 21-32 mmol/L Anion Gap 6.0 3-11 mmol/L Blood Urea Nitrogen 15 7-18 mg/dl Creatinine 0.97 0.60-1.40 mg/dl Est Creatinine Clear Calc Drug Dose 127.8 ml/min Estimated GFR () 118.4 Estimated GFR (Non- 102.2 BUN/Creatinine Ratio 15.7 10-20 Random Glucose 133 70-99 mg/dl Calcium Level 8.4 8.5-10.1 mg/dl Assessment & Plan s/p lap assisted sigmoid colectomy seen with Dr. Negrete d/c lynn start on clears, keep IV at 150 cc/hr
[2017-02-05] MEDS ORDERED: HEPARIN SOD 5000 UNIT/0.5 ML CARP SQ ONE (08:00)
--- NOTE | 2017-02-05 08:09 | SURGERY PROGRESS NOTE ---
DATE: 02/05/2017 DATE: 02/05/2017 James is resting comfortably, his mother is at the bedside. He appears a little bit groggy, I'm sure it is from the analgesic that we will reevaluate and modify. Intraoperative findings were discussed with the patient yesterday, I had discussed it with the mother and sister. His last vitals showed a temperature of 37.1, pulse 80, respirations 18, blood pressure 117/75 and O2 sats 94 on room air. I&O -- urine output was 350 overnight. He has a Allen in. I&O has been slightly positive and is expected from the bowel prep, may need more fluids. Laboratory nunez, his white count is 12.98, hemoglobin is 13.3. He does have a left shift. He is on perioperative antibiotics. His BUN is 15, creatinine 0.97. The abdomen is softly distended. The incision is intact. The trocar sites are all healed well. We changed the Alondra and is still in place with minimal drainage. The Bassam drainage was minimal serosanguineous. At this point, we will discontinue the Allen catheter, instruct the patient to mobility. [facility] Will maintain his fluid as 150 for now.
[2017-02-05] MEDS: PANTOprazole SOD 40 MG TAB PO SCH (08:32)
[2017-02-05 10:50] VITALS: Ht 177.8 cm; Wt 99.1 kg
--- NOTE | 2017-02-05 11:04 | NUR ---
Pt screened for admitting Dx of Diverticulitis. Please refer to linked assessment Addendum: 02/05/17 at [address] Amended: Links added.
[2017-02-05] MEDS ORDERED: OXYC-57 PO (12:11)
--- NOTE | 2017-02-05 12:13 | Discharge Instructions ---
Discharge Instructions Date of Service Feb 05, 2017. Admission Reason for Admission: Diverticulitis Discharge Discharge Diagnosis / Problem: sigmod colectomy Discharge Goals Goal(s): Improve disease control Activity Recommendations Activity Limitations: as noted below Lifting Limitations: no more than 10 pounds Shower/Bathe: no limitations Driving or Machine Use: 1 week after surgery . Instructions / Follow-Up Instructions / Follow-Up Dr. Negrete in 1 week, call [phone] to schedule [place] can be removed in the office 10-14 days after surgery Current Hospital Diet Patient's current hospital diet: Clear Liquid Diet Discharge Diet Recommended Diet: Low Fat Diet (for a few days) Procedures Procedures Performed: Laparoscopic-Assisted Sigmoid Colon Resection Pending Studies Studies pending at discharge: no Work Instructions Return To Work: after follow-up Medical Emergencies . Who to Call and When: Medical Emergencies: If at any time you feel your situation is an emergency, please call 911 immediately. . Non-Emergent Contact Non-Emergency issues call your: Surgeon Call Non-Emergent contact if: you have a fever, temperature is above 101.5, your pain is not controlled, wound has increased drainage, wound has increased redness, wound has increased pain, you have any medication questions . "Provider Documentation" section prepared by Hernan Santos. . VTE Core Measure Inpt VTE Proph given/why not?: Unfractionated heparin SQ, SCD's [place] Drug Monitoring Program Search Results: no issues identified
[2017-02-05 12:42] VITALS: BP 127/79; PULSE 76; TEMP 37; O2SAT 93
[2017-02-05] MEDS: HYDROmorphone INJ 1 MG/ML SYR IV PRN ×2 (12:55→16:06)
[2017-02-05] MEDS: KETOROLAC TROMETHAMINE 30 MG/ML VIAL IV SCH ×2 (13:36→19:17)
[2017-02-05] MEDS: HEPARIN SOD 5000 UNIT/0.5 ML CARP SQ SCH ×2 (13:53→21:37)
[2017-02-05 15:08] VITALS: BP 116/72; PULSE 85; TEMP 36.7; O2SAT 94
[2017-02-05 23:07] VITALS: BP 110/62; PULSE 74; TEMP 37; O2SAT 95
[2017-02-06] MEDS: HYDROmorphone INJ 1 MG/ML SYR IV PRN ×5 (00:10→19:08)
[2017-02-06] MEDS: KETOROLAC TROMETHAMINE 30 MG/ML VIAL IV SCH ×4 (00:48→20:33)
--- NOTE | 2017-02-06 01:33 | NUR ---
ID: Pt is alert and oriented x4. Lungs clear on RA. Tolerating diet. Independent OOB. IV fluids infusing as per order. Pain controlled with IV pain medication. Voiding in the bathroom without difficulty.
[2017-02-06] MEDS: LACTATED RINGER'S 1000ML 1,000 ML IV SCH ×2 (04:09→06:21)
[2017-02-06] MEDS: HEPARIN SOD 5000 UNIT/0.5 ML CARP SQ SCH ×3 (06:23→21:33)
[2017-02-06 07:13] VITALS: BP 116/73; PULSE 59; TEMP 36.7; O2SAT 94
[2017-02-06 07:34] LABS: HEMATOCRIT 35.9 % (42-52); HEMOGLOBIN 11.9 g/dL (14.0-18.0); IG# 0.03 K/uL (0.00-0.02); LYMPH ABS # 2.46 K/uL (1.2-3.4); MEAN CELL VOLUME 86.9 fL (80-100); MEAN CORPUSCULAR HEMOGLOBIN 28.8 pg (25-34); MEAN CORPUSCULAR HGB CONC 33.1 g/dl (32-36); MEAN PLATELET VOLUME 10.2 fL (7.4-10.4); MONO % 12.8 %; MONO ABS # 1.17 K/uL (0.11-0.59); NEUT % 59.9 %; NEUT ABS # 5.45 K/uL (1.4-6.5); PLATELET COUNT 207 K/uL (130-400); RED CELL DISTRIBUTION WIDTH CV 13.4 % (11.5-14.5); RED CELL DISTRIBUTION WIDTH SD 42.6 fL (36.4-46.3); WHITE BLOOD COUNT 9.11 K/uL (4.8-10.8)
[2017-02-06 08:07] LABS: CALCIUM 8.1 mg/dl (8.5-10.1); CREATININE 0.74 mg/dl (0.60-1.40); POTASSIUM 3.8 mmol/L (3.5-5.1)
[2017-02-06] MEDS: PANTOprazole SOD 40 MG TAB PO SCH (08:53)
--- NOTE | 2017-02-06 11:03 | Surgery Progress Note ---
Surgery Progress Note Date of Service Feb 06, 2017. Subjective Complaining of pain / gas cramps which are managed by pain medications. Passing flatus. No bowel movement. No nausea with clear liquids. Objective Vital Signs: Date Time Temp Pulse Resp B/P (MAP) Pulse Ox O2 Delivery O2 Flow Rate FiO2 02/06/17 07:30 Room Air 02/06/17 07:13 36.7 59 19 116/73 (87) 94 Room Air 02/05/17 23:30 Room Air 02/05/17 23:07 37.0 74 18 110/62 (78) 95 Room Air 02/05/17 15:17 Room Air 02/05/17 15:08 36.7 85 16 116/72 (87) 94 Room Air 02/05/17 12:42 37.0 76 18 127/79 (95) 93 Room Air Physical Exam: NATA drainage (serosanguinous, 45 cc) General Appearance: WD/WN, no apparent distress Head: normocephalic, atraumatic Neck: supple Respiratory/Chest: normal breath sounds, no respiratory distress Cardiovascular: regular rate, rhythm Abdomen: normal bowel sounds, soft, + distended (mild), + tenderness (at incision) Incision(s): clean, dry, intact (drain in place) Extremities: no pedal edema Laboratory Results: Results Past 24 Hours Test 02/06/17 07:13 Range/Units White Blood Count 9.11 4.8-10.8 K/uL Red Blood Count 4.13 4.7-6.1 M/uL Hemoglobin 11.9 14.0-18.0 g/dL Hematocrit 35.9 42-52 % Mean Corpuscular Volume 86.9 80-100 fL Mean Corpuscular Hemoglobin 28.8 25-34 pg Mean Corpuscular Hemoglobin Concent 33.1 32-36 g/dl Platelet Count 207 130-400 K/uL Mean Platelet Volume 10.2 7.4-10.4 fL Neutrophils (%) (Auto) 59.9 % Lymphocytes (%) (Auto) 27.0 % Monocytes (%) (Auto) 12.8 % Eosinophils (%) (Auto) 0.0 % Basophils (%) (Auto) 0.0 % Neutrophils # (Auto) 5.45 1.4-6.5 K/uL Lymphocytes # (Auto) 2.46 1.2-3.4 K/uL Monocytes # (Auto) 1.17 0.11-0.59 K/uL Eosinophils # (Auto) 0.00 0-0.5 K/uL Basophils # (Auto) 0.00 0-0.2 K/uL RDW Standard Deviation 42.6 36.4-46.3 fL RDW Coefficient of Variation 13.4 11.5-14.5 % Immature Granulocyte % (Auto) 0.3 % Immature Granulocyte # (Auto) 0.03 0.00-0.02 K/uL Sodium Level 139 136-145 mmol/L Potassium Level 3.8 3.5-5.1 mmol/L Chloride Level 104 98-107 mmol/L Carbon Dioxide Level 27 21-32 mmol/L Anion Gap 8.0 3-11 mmol/L Blood Urea Nitrogen 13 7-18 mg/dl Creatinine 0.74 0.60-1.40 mg/dl Est Creatinine Clear Calc Drug Dose 167.6 ml/min Estimated GFR () 140.5 Estimated GFR (Non- 121.2 BUN/Creatinine Ratio 17.1 10-20 Random Glucose 84 70-99 mg/dl Calcium Level 8.1 8.5-10.1 mg/dl Assessment & Plan s/p lap sigmoid resection POD#2. Overall doing well. Will advance to full liquids and then await return of bowel function. Continue pain meds. Encourage activity.
[2017-02-06] MEDS: D5W AND 1/2NSS + 20MEQ KCL 1,000 ML IV SCH ×2 (12:01→21:31)
[2017-02-06 15:13] VITALS: BP 106/70; PULSE 62; TEMP 36.7; O2SAT 94
[2017-02-06 23:04] VITALS: BP 107/64; PULSE 61; TEMP 36.6; O2SAT 95
[2017-02-07] MEDS: KETOROLAC TROMETHAMINE 30 MG/ML VIAL IV SCH ×2 (01:03→07:04)
--- NOTE | 2017-02-07 01:15 | NUR ---
ID Note: patient resting in bed. alert and oriented x4. c/o abdominal pain 07/18, see emar. IVF infusing as ordered. lungs clear on RA, denies cough, shortness of breath or chest pain. positive bowel sounds, passing flatus, tolerating full liquid diet. pulses palpable, denies numbness/tingling. oob independently to void. discharge home. call calderon in reach. will continue to monitor.
[2017-02-07] MEDS: HYDROmorphone INJ 1 MG/ML SYR IV PRN ×5 (04:22→23:20)
[2017-02-07] MEDS: HEPARIN SOD 5000 UNIT/0.5 ML CARP SQ SCH ×3 (05:53→23:18)
[2017-02-07 05:56] LABS: BASO % 0.3 %; BASO ABS # 0.02 K/uL (0-0.2); EOS % 1.9 %; EOS ABS # 0.15 K/uL (0-0.5); HEMATOCRIT 36.4 % (42-52); HEMOGLOBIN 12.6 g/dL (14.0-18.0); IG# 0.03 K/uL (0.00-0.02); LYMPH % 40.5 %; LYMPH ABS # 3.12 K/uL (1.2-3.4); MEAN CELL VOLUME 86.7 fL (80-100); MEAN CORPUSCULAR HGB CONC 34.6 g/dl (32-36); MEAN PLATELET VOLUME 10.3 fL (7.4-10.4); MONO % 12.1 %; MONO ABS # 0.93 K/uL (0.11-0.59); NEUT % 44.8 %; NEUT ABS # 3.45 K/uL (1.4-6.5); PLATELET COUNT 209 K/uL (130-400); RED CELL DISTRIBUTION WIDTH CV 13.3 % (11.5-14.5); RED CELL DISTRIBUTION WIDTH SD 42.3 fL (36.4-46.3)
[2017-02-07 06:32] LABS: CALCIUM 8.4 mg/dl (8.5-10.1); CREATININE 0.77 mg/dl (0.60-1.40); POTASSIUM 3.8 mmol/L (3.5-5.1)
[2017-02-07 07:20] VITALS: BP 115/79; PULSE 61; TEMP 36.9; O2SAT 95
[2017-02-07] MEDS: D5W AND 1/2NSS + 20MEQ KCL 1,000 ML IV SCH ×2 (07:35→17:16)
[2017-02-07] MEDS: PANTOprazole SOD 40 MG TAB PO SCH (07:35)
--- NOTE | 2017-02-07 07:35 | Surgery Progress Note ---
Surgery Progress Note Date of Service Feb 07, 2017. Subjective Post OP Day: 3 + feeling well, + complaints (some gas pain; wosre when walking), + ambulating, + flatus, + diet (fulls), No bowel movement, No nausea, No vomiting Objective Vital Signs: Date Time Temp Pulse Resp B/P (MAP) Pulse Ox O2 Delivery O2 Flow Rate FiO2 02/07/17 07:20 36.9 61 18 115/79 (91) 95 Room Air 02/06/17 23:30 Room Air 02/06/17 23:04 36.6 61 16 107/64 (78) 95 Room Air 02/06/17 15:20 Room Air 02/06/17 15:13 36.7 62 18 106/70 (82) 94 Room Air Physical Exam: NATA drainage (serosanguinous; minimal) General Appearance: WD/WN, no apparent distress Head: normocephalic, atraumatic Neck: supple, trachea midline Respiratory/Chest: chest non-tender, lungs clear, normal breath sounds Cardiovascular: regular rate, rhythm, no gallop, no murmur Abdomen: normal bowel sounds, non distended, soft, + tenderness (mild) Incision(s): clean, intact Extremities: non-tender, no pedal edema Laboratory Results: Results Past 24 Hours Test 02/07/17 05:21 Range/Units White Blood Count 7.70 4.8-10.8 K/uL Red Blood Count 4.20 4.7-6.1 M/uL Hemoglobin 12.6 14.0-18.0 g/dL Hematocrit 36.4 42-52 % Mean Corpuscular Volume 86.7 80-100 fL Mean Corpuscular Hemoglobin 30.0 25-34 pg Mean Corpuscular Hemoglobin Concent 34.6 32-36 g/dl Platelet Count 209 130-400 K/uL Mean Platelet Volume 10.3 7.4-10.4 fL Neutrophils (%) (Auto) 44.8 % Lymphocytes (%) (Auto) 40.5 % Monocytes (%) (Auto) 12.1 % Eosinophils (%) (Auto) 1.9 % Basophils (%) (Auto) 0.3 % Neutrophils # (Auto) 3.45 1.4-6.5 K/uL Lymphocytes # (Auto) 3.12 1.2-3.4 K/uL Monocytes # (Auto) 0.93 0.11-0.59 K/uL Eosinophils # (Auto) 0.15 0-0.5 K/uL Basophils # (Auto) 0.02 0-0.2 K/uL RDW Standard Deviation 42.3 36.4-46.3 fL RDW Coefficient of Variation 13.3 11.5-14.5 % Immature Granulocyte % (Auto) 0.4 % Immature Granulocyte # (Auto) 0.03 0.00-0.02 K/uL Sodium Level 138 136-145 mmol/L Potassium Level 3.8 3.5-5.1 mmol/L Chloride Level 103 98-107 mmol/L Carbon Dioxide Level 29 21-32 mmol/L Anion Gap 6.0 3-11 mmol/L Creatinine 0.77 0.60-1.40 mg/dl Est Creatinine Clear Calc Drug Dose 161.0 ml/min Estimated GFR () 138.2 Estimated GFR (Non- 119.2 BUN/Creatinine Ratio 10.9 10-20 Random Glucose 101 70-99 mg/dl Calcium Level 8.4 8.5-10.1 mg/dl Assessment & Plan s/p hand assisted lap sigmoid resection -passing flatus, no BM -ambulating OK -will limit IV pain meds as tolerated -WBC normal; H/H stable -con't fulls until BM
[2017-02-07 15:06] VITALS: BP 120/82; PULSE 90; TEMP 36.5; O2SAT 96
[2017-02-07 23:00] VITALS: BP 123/87; PULSE 77; TEMP 37.3; O2SAT 96
[2017-02-08] MEDS: D5W AND 1/2NSS + 20MEQ KCL 1,000 ML IV SCH ×3 (03:05→23:26)
--- NOTE | 2017-02-08 03:29 | NUR ---
ID: Pt. alert and oriented x4. Vitals WNL. IVF infusing as ordered. Reporting tolerable pain level with PRN IV pain medication. Tolerating Full Liquid diet. [place] intact x3 abdominal incisions, well-approximated, no drainage, STU; 4x4, Medipore dry, intact to mid abdomen, scant serosanguineous drainage circled. 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 Voiding clear yellow in urinal. Ambulating independently in room and hallways. Discharge plans uncertain at this time.
[2017-02-08] MEDS: HYDROmorphone INJ 1 MG/ML SYR IV PRN ×7 (03:34→22:07)
[2017-02-08] MEDS: HEPARIN SOD 5000 UNIT/0.5 ML CARP SQ SCH ×3 (06:07→22:06)
--- NOTE | 2017-02-08 07:15 | Surgery Progress Note ---
Surgery Progress Note Date of Service Feb 08, 2017. Subjective Post OP Day: 4 + feeling well, + complaints (still some gas pain), + ambulating, + flatus, + diet (taking fulls OK), No bowel movement, No nausea, No vomiting Objective Vital Signs: Date Time Temp Pulse Resp B/P (MAP) Pulse Ox O2 Delivery O2 Flow Rate FiO2 02/07/17 23:15 Room Air 02/07/17 23:00 37.3 77 16 123/87 (99) 96 Room Air 02/07/17 15:35 Room Air 02/07/17 15:06 36.5 90 18 120/82 (95) 96 Room Air 02/07/17 07:40 Room Air 02/07/17 07:20 36.9 61 18 115/79 (91) 95 Room Air General Appearance: WD/WN, no apparent distress Head: normocephalic, atraumatic Neck: supple, trachea midline Respiratory/Chest: chest non-tender, lungs clear Cardiovascular: regular rate, rhythm, no gallop, no murmur Abdomen: normal bowel sounds, non distended, soft, + tenderness Incision(s): clean, dry, intact Extremities: non-tender, no pedal edema Assessment & Plan s/p hand assisted lap sigmoid resection -passing flatus, no BM -ambulating OK -fulls does not sound good to patient, begin soft diet s/p hand assisted lap sigmoid resection -passing flatus, no BM -ambulating OK -will limit IV pain meds as tolerated -WBC normal; H/H stable -con't fulls until BM
[2017-02-08 07:41] VITALS: BP 113/75; PULSE 84; TEMP 37.1; O2SAT 95
[2017-02-08] MEDS: ACETAMINOPHEN IV 100 ML IV PRN (15:49)
[2017-02-08 15:58] VITALS: BP 126/91; PULSE 72; TEMP 37; O2SAT 97
--- NOTE | 2017-02-08 22:47 | NUR ---
Patient A&O; pain relieved with IV pain medication; dressing to gabrielle changed with 4x4 and medipore applied; IVF's in fusing as ordered; call calderon within reach and pt instructed to ring for assistance.
[2017-02-08 23:15] VITALS: BP 113/77; PULSE 73; TEMP 36.7; O2SAT 95
[2017-02-09] MEDS: HYDROmorphone INJ 1 MG/ML SYR IV PRN ×2 (03:05→06:01)
--- NOTE | 2017-02-09 04:25 | NUR ---
ID: Pt is alert and oriented x4. Lungs clear on RA. Tolerating diet. Independent OOB. Pain controlled with IV pain medication. IV fluids infusing as per order. Dsg dry and intact. NATA drain patent. Voiding in the bathroom without any difficulty. Plan for discharge is uncertain at this time.
[2017-02-09 05:23] LABS: BASO % 0.4 %; BASO ABS # 0.04 K/uL (0-0.2); EOS % 3.6 %; EOS ABS # 0.34 K/uL (0-0.5); HEMATOCRIT 39.1 % (42-52); HEMOGLOBIN 13.6 g/dL (14.0-18.0); IG# 0.09 K/uL (0.00-0.02); LYMPH % 26.6 %; LYMPH ABS # 2.51 K/uL (1.2-3.4); MEAN CELL VOLUME 85.9 fL (80-100); MEAN CORPUSCULAR HEMOGLOBIN 29.9 pg (25-34); MEAN CORPUSCULAR HGB CONC 34.8 g/dl (32-36); MEAN PLATELET VOLUME 10.3 fL (7.4-10.4); MONO ABS # 0.94 K/uL (0.11-0.59); NEUT % 58.4 %; NEUT ABS # 5.52 K/uL (1.4-6.5); PLATELET COUNT 248 K/uL (130-400); RED CELL DISTRIBUTION WIDTH CV 13.1 % (11.5-14.5); RED CELL DISTRIBUTION WIDTH SD 40.9 fL (36.4-46.3); WHITE BLOOD COUNT 9.44 K/uL (4.8-10.8)
[2017-02-09 05:42] LABS: CALCIUM 8.7 mg/dl (8.5-10.1); CREATININE 0.99 mg/dl (0.60-1.40); POTASSIUM 4.5 mmol/L (3.5-5.1)
[2017-02-09] MEDS: HEPARIN SOD 5000 UNIT/0.5 ML CARP SQ SCH ×3 (06:00→21:34)
[2017-02-09 06:59] VITALS: BP 121/81; PULSE 79; TEMP 37; O2SAT 95
[2017-02-09] MEDS ORDERED: OXYCODONE/ACETAMINOPHEN 5-325 TAB PO PRN (07:30)
[2017-02-09] MEDS: ACETAMINOPHEN IV 100 ML IV PRN (07:43)
--- NOTE | 2017-02-09 08:47 | SURGERY PROGRESS NOTE ---
DATE: 02/09/2017 DATE: 02/09/2017 James seems fine. He just came back from the bathroom, he has passed some flatus, but he has not had a bowel movement yet. He is complaining of some lower abdominal pain on each side of the incision. His last vitals showed a temperature of 37, pulse 79, respirations 18, blood pressure 120/85, sats 95 on room air. I&O, he had 425 urine overnight. His IV is still running at 100 mL an hour. Yesterday he stated that he ate steak without any problem. His abdomen is minimally distended. The incision is free of any erythema. The [place] drain in the subQ was removed. The Bassam drainage is only 20 mL out overnight, it is serosanguineous. Laboratory studies was reviewed this morning. At this point we will wait for him to have a bowel movement, but he has been using narcotics pretty regularly. We have encouraged him to stop using IVs, except for the acetaminophen and convert him to an oral analgesic. If he moves his bowels he certainly can go home today. He also can be able to ambulate and may shower. The path report is still pending. ZHENG
[2017-02-09] MEDS: D5W AND 1/2NSS + 20MEQ KCL 1,000 ML IV SCH ×2 (09:24→19:08)
[2017-02-09] MEDS: OXYCODONE/ACETAMINOPHEN 5-325 TAB PO PRN ×2 (11:50→20:20)
--- NOTE | 2017-02-09 13:05 | NUR ---
A: Patient is complaining of sore throat and cough. States he is coughing up mucus that is tinged green. Lungs are clear on room air. Vital signs are within normal limits. Patient is splinting abdomen when coughing.
[2017-02-09 15:20] VITALS: BP 116/81; PULSE 76; TEMP 36.9; O2SAT 99
[2017-02-09 15:45] VITALS: O2SAT 99
[2017-02-09 22:57] VITALS: BP 119/79; PULSE 74; TEMP 36.8; O2SAT 97
--- NOTE | 2017-02-10 00:36 | NUR ---
ID: Pt is alert and oriented x4. Lungs clear on RA. Tolerating diet. Independent OOB. Voiding in the bathroom without difficulty. IV fluids infusing as per order. Pain controlled with PO pain medications. Dsg dry and intact.
[2017-02-10] MEDS: D5W AND 1/2NSS + 20MEQ KCL 1,000 ML IV SCH (04:37)
[2017-02-10] MEDS: HEPARIN SOD 5000 UNIT/0.5 ML CARP SQ SCH ×2 (05:46→14:17)
[2017-02-10] MEDS: OXYCODONE/ACETAMINOPHEN 5-325 TAB PO PRN ×3 (05:46→16:24)
[2017-02-10 07:00] VITALS: BP 113/75; PULSE 82; TEMP 36.9; O2SAT 94
--- NOTE | 2017-02-10 07:33 | SURGERY PROGRESS NOTE ---
DATE: 02/10/2017 James is 6th postoperative day status post laparoscopic assisted sigmoid colon resection, path report showed diverticulitis, acute. The patient was doing well yesterday then he stated he had some coughing spells and had some abdominal discomfort. This morning he is much better. His last vitals showed a temperature of 36.9, pulse 82, respirations 18, blood pressure 113/75. O2 sats 94 on room air. I&O, he had 20 mL of Bassam drainage of serosanguineous. He has had 2 small bowel movements, he stated just some air. His urine output, he had 950 overnight. His abdomen is completely benign. The incision is intact. At this point, the patient is very slow to move around. We will check him again later today. He has tolerated a diet yesterday, he is not nauseated and if he feels better today, we will send him home. We will leave the Bassam drain in due to the acute process that we found him until this drainage is minimal and is serosanguineous.
[2017-02-10 07:46] VITALS: BP 112/82; PULSE 83; TEMP 36.7; O2SAT 97
[2017-02-10 08:29] VITALS: O2SAT 97
--- NOTE | 2017-02-10 11:20 | NUR ---
Pt identified as a case find as having a LOS of 5 days. Spoke with Pt. He lives at home with his mother. He is independent with ADL's at baseline. He plans to return home at discharge. No Case Management needs identified at this time. Case Management will follow.
[2017-02-10 12:10] VITALS: BP 108/78; PULSE 89; TEMP 37; O2SAT 96
[2017-02-10 15:20] VITALS: BP 99/69; PULSE 75; TEMP 36.8; O2SAT 97
[2017-02-10 16:14] VITALS: BP 99/69; PULSE 75; TEMP 36.8; O2SAT 97
--- NOTE | 2017-02-12 09:16 | DISCHARGE SUMMARY ---
ATTENDING PHYSICIAN: Servando Negrete MD. PRIMARY DISCHARGE DIAGNOSIS: Recurrent diverticulitis refractory to medical therapy. PROCEDURE PERFORMED: Laparoscopic assisted sigmoid colon resection with primary anastomosis. HOSPITAL COURSE: The patient is a 31-year-old male with recurrent diverticulitis brought in through same day and taken to the operating room for laparoscopic assisted sigmoid colectomy. Procedure was well tolerated. He was transferred to the surgical floor. Subcutaneous heparin was used for DVT prophylaxis. Perioperative antibiotics were continued for 24 hours. His hemoglobin and hematocrit remained stable postoperatively. He was started on clear liquids on postoperative day 1. Allen catheter was also removed. He was advanced to full liquids on postoperative day 2. On postoperative day 4, he was advanced to a soft diet. He had a small bowel movement on day 5 and by day 6, he was having multiple bowel movements. He was tolerating diet. We had some difficulty managing his pain initially with a PARK RECREATION MANAGER then IV Dilaudid along with Toradol. By day 6, he was tolerating oral analgesics. [place] drain had been removed from the incision. Bassam drain was left in the pelvis. His incision was healing well. He was stable for discharge on postoperative day #6. DISCHARGE INSTRUCTIONS: Discharged home with a Bassam drain in place. He will follow up in the office on Wednesday for removal of the drain and linsey. DISCHARGE MEDICATIONS: Percocet 1-2 tablets every 4 hours as needed. May continue Motrin 400-600 mg as needed, Zofran 4 mg sublingual p.r.n. nausea. He should not take additional Tylenol while he is taking a Percocet. He does not need to continue Cipro or Flagyl, which he had been taking at home previously. [facility]
== END 2017-02-10 17:24 | disposition home or self-care (01) | DRG 331 ==
LOC: C.ACU 06:50 → C.MSW 11:53 → ENRESERV 12:38
PROVIDERS: ADMIT Surgery; ATTEND Surgery
PROC: 0DTN0ZZ Resection of Sigmoid Colon, Open Approach (ICD-10-PCS; principal; 2017-02-04 08:40)
DX: K57.92 Diverticulitis of intestine, part unspecified, without perforation or abscess without bleeding (principal)